=== PATIENT | female | born 1950 | race Hispanic/Latino ===

== ENCOUNTER 2019-05-12 21:22 | Emergency (ER) | payer OTHER ==
--- OUTSIDE RECORDS SUMMARY | 2019-05-12 21:24 | XMS REPORT | Clinical Summary ---
:1950 Author Organization [facility] Address [address] [place] [address] Care Team Providers Name Role Phone Nena Arriaga MD Primary Care Provider Allergies Not on File Medications Not on file Active Problems Not on file Encounters Date Type Specialty Care Team Description 04/19/2019 Hospital Encounter Radiology Nahun Shepard, Screening mammogram, encounter for after 05/11/2018 Social History Tobacco Use Types Packs/Day Years Used Date Never Assessed Sex Assigned at Date Recorded Not on file Job Start Date Occupation Industry Not on file Not on file Not on file Travel History Travel Start Travel End No recent travel history available. Last Filed Vital Signs Not on file Plan of Treatment Health Maintenance Due Date Last Done Comments COLONOSCOPY SCREENING 02/07/2002 SHINGLES VACCINES (#1) 02/07/2002 65+ PNEUMOCOCCAL VACCINE (1 of 2 - 02/07/2017 PCV13) INFLUENZA VACCINE 05/19/2019 BREAST CANCER SCREENING 04/19/2021 04/19/2019, 03/25/2018, 02/27/2017, Additional history exists Procedures Procedure Name Priority Date/Time Associated Diagnosis Comments MAMMO SCREENING W Routine 04/19/2019 4:09 PM Screening mammogram, Results for this CAD BILATERAL CDT encounter for procedure are in the results section. after 05/11/2018 Results Mammo Screening w Cad Bilateral (04/19/2019 4:09 PM CDT) Specimen Narrative Performed At PROCEDURE: MAMMO SCREENING W CAD BILATERAL RADIANT Computer aided detection was utilized for the interpretation of the digital bilateral screening mammography. INDICATION:Routine screening. COMPARISON: 03/25/2018 through 02/27/2017 DENSITY: There are scattered areas of fibroglandular density. FINDINGS: There is no suspicious mass, microcalcification, or architectural distortion identified. There is no significant interval change compared to prior exams. IMPRESSION:No mammographic evidence of malignancy. RECOMMENDATION: Comparison with physical exam and annual screening mammography. BI-RADS 1: NEGATIVE This facility is accredited by the [employer] for Mammography. A negative x-ray report should not delay biopsy if a dominant or clinically suspicious mass is present.Not all cancers are identified by x-ray. [id number] Performing Organization Address City/State/Zipcode Phone Number [facility] [address] [place] [address] after 05/11/2018 Insurance Payer Benefit Plan / Subscriber ID Effective Dates Phone Address Type Group MEDICARE MEDICARE PART A xxxxxxxxxxx 2017-Present [place], [place] Medicare AND B Advance Directives Patient has advance care planning documents on file. For more information, please contact:[address] [place] [address]
--- OUTSIDE RECORDS SUMMARY | 2019-05-12 21:24 | XMS REPORT ---
:1950 Author Organization [employer] Care Team Providers Name Role Phone Corina Nena Provider Role Unavailable Allergies, Adverse Reactions, Alerts Substance Reaction Event Type PCN hive, anaphylaxis Drug Allergy Aspirin generalized weakness Drug Allergy Problems Problem Type Condition Code Onset Dates Condition Status Assessment Tongue swelling R22.0 Active Assessment Allergic rhinitis, unspecified J30.9 Active seasonality, unspecified trigger Problem Allergic rhinitis, unspecified J30.9 Active seasonality, unspecified trigger Problem Red tongue K14.9 Active Problem Tongue swelling R22.0 Active Assessment Red tongue K14.9 Active Problem Family history of diabetes mellitus Z83.3 Active Problem Seasonal allergies J30.2 Active Medications Medication Code Code Instructions Start End Status Dosage System Date Date Singulair [facility] 63340432511 10 MG Orally Active 1 tablet Once a day Shaista [facility] 02754570079 180 MG Orally Active 1 tablet as Allergy Once a day needed Medrol [facility] 25912736009 4 MG Orally as March 03, Active as directed directed 2018 Fish Oil ND 37977178106 1000 MG Orally Active 1 capsule Once a day Alcortin A [facility] 12011988338 1-2-1 % Active 1 application Externally to affected Twice a day area as needed Zofran ND 15774089053 4 MG Orally Sep 08, Active 1 tablet Every 6-8 hours 2017 as needed for nausea/vomiting ; february dose 15-20 minutes before abx. HydrOXYzine [facility] 28716882909 25 MG Orally April 22, Active 1 tablet as HCl every 8 hrs 2018 needed Results No Known Results Summary Purpose eClinicalWorks Submission
--- OUTSIDE RECORDS SUMMARY | 2019-05-12 21:24 | XMS REPORT ---
:1950 Author Organization [employer] Care Team Providers Name Role Phone Nena Arriaga Provider Role Unavailable Allergies No Known Allergies Problems Problem Type Condition Code Onset Dates Condition Status Problem Allergic rhinitis, unspecified J30.9 Active seasonality, unspecified trigger Problem Red tongue K14.9 Active Problem Tongue swelling R22.0 Active Problem Family history of diabetes mellitus Z83.3 Active Problem Seasonal allergies J30.2 Active Medications No Known Medications Results No Known Results Summary Purpose eClinicalWorks Submission
--- OUTSIDE RECORDS SUMMARY | 2019-05-12 21:24 | XMS REPORT ---
:1950 Author Organization [facility] Address [address] [place] [address] Dr. [address]t [address] [place] [address] Care Team Providers Name Role Phone Nahun Shepard Unavailable Unavailable Chandan Kuo Unavailable Unavailable Problems This patient has no known problems. Allergies, Adverse Reactions, Alerts This patient has no known allergies or adverse reactions. Medications This patient has no known medications. Encounters Start End Encounter Admission Attending Care Care Encounter Date/Time Date/Time Type Type Clinicians Facility Department ID 2019-04-19 2019-04-19 Outpatient BASHIR hSepard [id number] 10:59:00 10:59:00 Nahun 2018-03-25 2018-03-25 Outpatient BASHIR Kuo [id number] 10:48:00 10:48:00 Chandan
--- OUTSIDE RECORDS SUMMARY | 2019-05-12 21:24 | XMS REPORT ---
:1950 Author Organization [employer] Care Team Providers Name Role Phone Miguel Arriagaen Provider Role Unavailable Allergies No Known Allergies Problems Problem Type Condition Code Onset Dates Condition Status Assessment Strep pharyngitis J02.0 Active Problem Tongue swelling R22.0 Active Problem Allergic rhinitis, unspecified J30.9 Active seasonality, unspecified trigger Problem Strep pharyngitis J02.0 Active Problem Seasonal allergies J30.2 Active Problem Red tongue K14.9 Active Problem Family history of diabetes mellitus Z83.3 Active Medications Medication Code Code Instructions Start End Status Dosage System Date Date Shaista Allergy [facility] 55416885896 180 MG Orally Active 1 tablet as Once a day needed Fish Oil ND 05240367734 1000 MG Orally Active 1 capsule Once a day Clarithromycin ND 63328672586 500 MG Orally April Active 1 tablet every 12 hrs 2018 Zofran ND 17928209121 4 MG Orally Sep 08, Active 1 tablet Every 6-8 hours 2018 as needed for nausea/vomiting ; february dose 15-20 minutes before abx. Medrol ND 00886860556 4 MG Orally as March 03, Active as directed directed 2018 Alcortin A [facility] 41571117431 1-2-1 % Active 1 application Externally to affected Twice a day area as needed HydrOXYzine HCl ND 42699857820 25 MG Orally April Active 1 tablet as every 8 hrs , needed 2017 Azithromycin ND 94465120380 250 MG Orally April Active 2 tablets on as directed , the first 2018 2018 day, then 1 tablet daily for 4 days Singulair ND 13560084941 10 MG Orally Active 1 tablet Once a day Results No Known Results Summary Purpose eClinicalWorks Submission
--- OUTSIDE RECORDS SUMMARY | 2019-05-12 21:24 | XMS REPORT ---
:1950 Author Organization [employer] Care Team Providers Name Role Phone Rogre Barry Provider Role Unavailable Allergies No Known Allergies Problems Problem Type Condition Code Onset Dates Condition Status Problem Seasonal allergies J30.2 Active Problem Family history of diabetes mellitus Z83.3 Active Medications No Known Medications Results No Known Results Summary Purpose eClinicalWorks Submission
--- OUTSIDE RECORDS SUMMARY | 2019-05-12 21:25 | XMS REPORT ---
:1950 Author Organization [employer] Care Team Providers Name Role Phone Corina Nena Provider Role Unavailable Allergies, Adverse Reactions, Alerts Substance Reaction Event Type PCN hive, anaphylaxis Drug Allergy Aspirin generalized weakness Drug Allergy Problems Problem Type Condition Code Onset Dates Condition Status Assessment Strep throat J02.0 Active Assessment URI, acute J06.9 Active Assessment Otalgia, bilateral H92.03 Active Assessment Hematuria, unspecified type R31.9 Active Assessment Abdominal pain, unspecified R10.9 Active abdominal location Assessment Urinary frequency R35.0 Active Assessment Dysuria R30.0 Active Problem Tongue swelling R22.0 Active Problem Allergic rhinitis, unspecified J30.9 Active seasonality, unspecified trigger Problem Strep pharyngitis J02.0 Active Problem Seasonal allergies J30.2 Active Problem Red tongue K14.9 Active Problem Family history of diabetes mellitus Z83.3 Active Medications Medication Code Code Instructions Start End Status Dosage System Date Date Zofran [facility] 15874244395 4 MG Orally Sep 08, Active 1 tablet Every 6-8 hours 2018 as needed for nausea/vomiting ; february dose 15-20 minutes before abx. Shaista Allergy [facility] 89582055248 180 MG Orally Active 1 tablet as Once a day needed Singulair ND 43134537541 10 MG Orally Active 1 tablet Once a day Medrol ND 58839774880 4 MG Orally as March 03, Active as directed directed 2018 HydrOXYzine HCl ND 45914701329 25 MG Orally April 22, Active 1 tablet as every 8 hrs 2018 needed Alcortin A [facility] 71816528455 1-2-1 % Active 1 application Externally to affected Twice a day area as needed Fish Oil ND 99646991100 1000 MG Orally Active 1 capsule Once a day Azithromycin ND 73573851988 250 MG Orally April 18April Active 2 tablets on as directed 2019 03, the first 2018 day, then 1 tablet daily for 4 days Results Name Result Date Reference Range Unit Abnormality Flag STREP A RAPID ----Result Positive 20190418 Urine Dip Stick ----pH 5.5 20190418 ----Ketone Negative 20190418 ----Appearance Yellow & Clear 20190418 ----SP. Gr 1.025 20190418 ----Leukocytes Negative 20190418 ----Glucose Negative 20190418 ----Protein Negative 20190418 ----Nitrite Negative 20190418 ----Blood 1+ 20190418 Summary Purpose eClinicalWorks Submission
--- OUTSIDE RECORDS SUMMARY | 2019-05-12 21:25 | XMS REPORT ---
:1950 Author Organization [employer] Care Team Providers Name Role Phone Roger Barry Provider Role Unavailable Allergies, Adverse Reactions, Alerts Substance Reaction Event Type PCN hive, anaphylaxis Drug Allergy Aspirin generalized weakness Drug Allergy Problems Problem Type Condition Code Onset Dates Condition Status Assessment Viral upper respiratory tract J06.9 Active infection Problem Tongue swelling R22.0 Active Problem Allergic rhinitis, unspecified J30.9 Active seasonality, unspecified trigger Problem Strep pharyngitis J02.0 Active Problem Seasonal allergies J30.2 Active Problem Red tongue K14.9 Active Problem Family history of diabetes mellitus Z83.3 Active Medications Medication Code Code Instructions Start End Status Dosage System Date Date Carbinoxamine [facility] 41973457666 4 MG Orally April Active 1 tablet as Maleate Three times a 18, 28, needed day 2018 2018 HydrOXYzine HCl ND 31185698592 25 MG Orally April Active 1 tablet as every 8 hrs , needed 2017 Fish Oil ND 14758573697 1000 MG Orally Active 1 capsule Once a day Medrol ND 04283690556 4 MG Orally as March 03, Active as directed directed 2019 Zofran ND 83276786673 4 MG Orally Sep 08, Active 1 tablet Every 6-8 hours 2018 as needed for nausea/vomiting ; february dose 15-20 minutes before abx. Alcortin A [facility] 67833559246 1-2-1 % Active 1 application Externally to affected Twice a day area as needed Fluticasone ND 53131041137 50 MCG/ACT April Active 1 spray in Propionate Nasally Once a 18, each nostril day 2018 Shaista Allergy [facility] 32409301007 180 MG Orally Active 1 tablet as Once a day needed Singulair ND 60397275598 10 MG Orally Active 1 tablet Once a day Results No Known Results Summary Purpose eClinicalWorks Submission
[2019-05-12] MEDS ORDERED: FAMOTIDINE 20 MG/2 ML VIAL IV ONE (21:54)
[2019-05-12] MEDS ORDERED: dexAMETHasone 10 MG/ML VIAL ONE (21:54)
[2019-05-12] MEDS ORDERED: DIPHENHYDRAMINE 50 MG/ML VIAL ONE (21:54)
--- NOTE | 2019-05-13 00:12 | ER ---
Nurse's Notes [facility] Name: Glenna Perdue Age: 69 yrs Sex: Female : 1950 Arrival Date: 05/12/2019 Time: 21:25 Bed 14 Private MD: Nena Arriaga Diagnosis: Acute pharyngitis Presentation: 05/12 21:33 Presenting complaint: Patient states: throat pain intermittent since March. pt states ak1 "it feels raw" pt states the pain is "so bad I can't even swallow my pills". Transition of care: patient was not received from another setting of care. Onset of symptoms is unknown. Risk Assessment: Do you want to hurt yourself or someone else? Patient reports no desire to harm self or others. Initial Sepsis Screen: Does the patient meet any 2 criteria? No. Patient's initial sepsis screen is negative. Does the patient have a suspected source of infection? No. Patient's initial sepsis screen is negative. Note pt seen at PCP office twice for s/s. Care prior to arrival: None. 21:33 Method Of Arrival: Ambulatory ak1 21:33 Acuity: KONRAD 3 ak1 Triage Assessment: 21:35 General: Appears in no apparent distress. Behavior is calm, anxious, no drooling, no ak1 resp distress. . Historical: - Allergies: 21:35 PENICILLINS; ak1 21:35 Codeine; ak1 21:35 Sulfa (Sulfonamide Antibiotics); ak1 21:35 Aspirin; ak1 - Home Meds: 21:35 None [Active]; ak1 - PMHx: 21:35 None; ak1 - PSHx: 21:35 Hysterectomy; Bladder suspension; ak1 - Immunization history:: Adult Immunizations unknown. - Social history:: Smoking status: Patient/guardian denies using tobacco. - Ebola Screening: : No symptoms or risks identified at this time. Screenin:55 Abuse screen: Denies threats or abuse. Denies injuries from another. Nutritional rr5 screening: No deficits noted. Tuberculosis screening: No symptoms or risk factors identified. Fall Risk IV access (20 points). Total Fowler Fall Scale indicates No Risk (0-24 pts). Assessment: 21:45 General: Appears in no apparent distress. uncomfortable, Behavior is calm, cooperative, rr5 appropriate for age. Pain: Complains of pain in throat Pain radiates to ear and sinus Pain Quality of pain is described as aching, Pain began gradually, Is intermittent. 21:45 Neuro: Level of Consciousness is awake, alert, obeys commands, Oriented to person, rr5 place, time, situation, Appropriate for age. Cardiovascular: Capillary refill < 3 seconds Patient's skin is warm and dry. Respiratory: Airway is patent Respiratory effort is even, unlabored, Respiratory pattern is regular, symmetrical. GI: No signs and/or symptoms were reported involving the gastrointestinal system. : No signs and/or symptoms were reported regarding the genitourinary system. EENT: Throat with gag reflex present, mild swelling. Reports difficulty swallowing. Derm: Skin is intact, Skin temperature is warm. Musculoskeletal: No signs and/or symptoms reported regarding the musculoskeletal system. 21:45 Pain: Pain currently is 7 out of 10 on a pain scale. rr5 22:15 Reassessment: Patient appears in no apparent distress at this time. oxygen saturation rr5 99% patient feels anxious after the medication administration. hooked on oxygen at 1 liter via nasal cannula. 23:15 Reassessment: Patient appears in no apparent distress at this time. Patient is alert, rr5 oriented x 3, equal unlabored respirations, skin warm/dry/pink. oxygen discontinue Patient states feeling better. Patient states symptoms have improved. 05/13 00:20 Reassessment: Patient appears in no apparent distress at this time. Patient is alert, rr5 oriented x 3, equal unlabored respirations, skin warm/dry/pink. discharge instruction given and explained without complaints made. Patient states feeling better. Patient states symptoms have improved. Vital Signs: 05/12 21:33 BP 185 / 82; Pulse 76; Resp 20; Temp 99.3; Pulse Ox 99% on R/A; Weight 63.96 kg (R); ak1 Height 5 ft. 2 in. (157.48 cm) (R); Pain 7/10; 22:30 BP 150 / 88; Pulse 79; Resp 17; Pulse Ox 99% on 1 lpm NC; rr5 23:30 BP 146 / 79; Pulse 80; Resp 16; Pulse Ox 99% on R/A; rr5 05/13 00:20 BP 141 / 70; Pulse 75; Resp 17; Temp 98.5; Pulse Ox 99% ; rr5 05/12 21:33 Body Mass Index 25.79 (63.96 kg, 157.48 cm) ak1 ED Course: 05/12 21:25 Patient arrived in ED. mr 21:25 Nena Arriaga MD is Private Physician. mr 21:26 [facility] pm1 21:26 Ata Orantes MD is Attending Physician. pm1 21:29 Howie Rodriguez, NICKOLAS is Primary Nurse. rr5 21:33 Arm band placed on Patient placed in an exam room, on a stretcher, Patient notified of ak1 wait time. 21:34 Triage completed. ak1 21:45 Patient has correct armband on for positive identification. Placed in gown. Call light rr5 in reach. Side rails up X2. 21:47 Inserted saline lock: 22 gauge in right forearm, using aseptic technique. rr5 22:15 Oxygen administration via nasal cannula \\T\\ 1L/min Response to oxygen therapy: rr5 maintaining 99-100%. 05/13 00:20 No provider procedures requiring assistance completed. rr5 Administered Medications: 05/12 21:48 Drug: Decadron - Dexamethasone 10 mg Route: IVP; Site: right forearm; rr5 22:50 Follow up: Response: No adverse reaction rr5 21:50 Drug: Pepcid 20 mg Route: IVP; Site: right forearm; rr5 22:50 Follow up: Response: No adverse reaction rr5 21:52 Drug: Benadryl 25 mg Route: IVP; Site: right forearm; rr5 22:50 Follow up: Response: No adverse reaction rr5 Outcome: 05/13 00:09 Discharge ordered by . pm1 00:20 Discharged to home ambulatory. rr5 00:20 Condition: stable 00:20 Discharge instructions given to patient, Instructed on discharge instructions, follow up and referral plans. Demonstrated understanding of instructions, follow-up care. 00:25 Patient left the ED. rr5 Signatures: Judy Barksdale mr LopezAlondra, RN RN ak1 Nii Hendrix, SHOESHINER SHOESHINER pm1 Howie Rodriguez, NICKOLAS RN rr5
--- NOTE | 2019-05-13 00:15 | EDPHYS ---
Physician Documentation [facility] Name: Glenna Perdue Age: 69 yrs Sex: Female : 1950 Arrival Date: 05/12/2019 Time: 21:25 Bed 14 Private MD: Nena Arriaga ED Physician Ata Orantes HPI: 05/12 21:52 This 69 yrs old Female presents to ER via Ambulatory with complaints of pm1 Pharyngitis. 21:52 The patient presents with sore throat. The patient describes throat pain as raw, pm1 scratchy. Onset: The symptoms/episode began/occurred On and off since March of this year. Severity of symptoms: in the emergency department the symptoms are unchanged. Modifying factors: The symptoms are alleviated by nothing, the symptoms are aggravated by swallowing, sick contacts. Associated signs and symptoms: Pertinent negatives chest pain, cough, earache, fever, flu-like symptoms. The patient has not experienced similar symptoms in the past. The patient has been recently seen by a physician: Dr. Barry and prescribed antihistamine for allergies. Patient did not agree with diagnosis and did not fill prescription. Historical: - Allergies: 21:35 PENICILLINS; ak1 21:35 Codeine; ak1 21:35 Sulfa (Sulfonamide Antibiotics); ak1 21:35 Aspirin; ak1 - Home Meds: 21:35 None [Active]; ak1 - PMHx: 21:35 None; ak1 - PSHx: 21:35 Hysterectomy; Bladder suspension; ak1 - Immunization history:: Adult Immunizations unknown. - Social history:: Smoking status: Patient/guardian denies using tobacco. - Ebola Screening: : No symptoms or risks identified at this time. ROS: 21:52 Constitutional: Negative for fever, chills, and weight loss, Eyes: Negative for injury, pm1 pain, redness, and discharge. 21:52 Neck: Negative for injury, pain, and swelling, Cardiovascular: Negative for chest pain, palpitations, and edema, Respiratory: Negative for shortness of breath, cough, wheezing, and pleuritic chest pain, Abdomen/GI: Negative for abdominal pain, nausea, vomiting, diarrhea, and constipation, Back: Negative for injury and pain, : Negative for injury, bleeding, discharge, and swelling, MS/Extremity: Negative for injury and deformity, Skin: Negative for injury, rash, and discoloration, Neuro: Negative for headache, weakness, numbness, tingling, and seizure. 21:52 ENT: Positive for sore throat, Negative for drainage from ear(s), ear pain. Exam: 21:52 Constitutional: This is a well developed, well nourished patient who is awake, alert, pm1 and in no acute distress. Head/Face: Normocephalic, atraumatic. Eyes: Pupils equal round and reactive to light, extra-ocular motions intact. Lids and lashes normal. Conjunctiva and sclera are non-icteric and not injected. Cornea within normal limits. Periorbital areas with no swelling, redness, or edema. 21:52 Neck: Trachea midline, no thyromegaly or masses palpated, and no cervical lymphadenopathy. Supple, full range of motion without nuchal rigidity, or vertebral point tenderness. No Meningismus. Chest/axilla: Normal chest wall appearance and motion. Nontender with no deformity. No lesions are appreciated. Cardiovascular: Regular rate and rhythm with a normal S1 and S2. No gallops, murmurs, or rubs. Normal PMI, no JVD. No pulse deficits. Respiratory: Lungs have equal breath sounds bilaterally, clear to auscultation and percussion. No rales, rhonchi or wheezes noted. No increased work of breathing, no retractions or nasal flaring. Abdomen/GI: Soft, non-tender, with normal bowel sounds. No distension or tympany. No guarding or rebound. No evidence of tenderness throughout. Back: No spinal tenderness. No costovertebral tenderness. Full range of motion. Skin: Warm, dry with normal turgor. Normal color with no rashes, no lesions, and no evidence of cellulitis. MS/ Extremity: Pulses equal, no cyanosis. Neurovascular intact. Full, normal range of motion. 21:52 ENT: External ear(s): are unremarkable, Ear canal(s): are normal, TM's: are normal, Nose: is normal, Mouth: is normal, Posterior pharynx: Airway: normal, no evidence of obstruction, Tonsils: are normal in appearance, no enlargement, no erythema, no exudate, no ulcerations, erythema, that is mild, exudate, is not appreciated, peritonsillar mass, is not appreciated, pooling of secretions, is not appreciated. 21:52 Neuro: Orientation: is normal, Motor: is normal, moves all fours. Vital Signs: 21:33 BP 185 / 82; Pulse 76; Resp 20; Temp 99.3; Pulse Ox 99% on R/A; Weight 63.96 kg (R); ak1 Height 5 ft. 2 in. (157.48 cm) (R); Pain 7/10; 22:30 BP 150 / 88; Pulse 79; Resp 17; Pulse Ox 99% on 1 lpm NC; rr5 23:30 BP 146 / 79; Pulse 80; Resp 16; Pulse Ox 99% on R/A; rr5 05/13 00:20 BP 141 / 70; Pulse 75; Resp 17; Temp 98.5; Pulse Ox 99% ; rr5 05/12 21:33 Body Mass Index 25.79 (63.96 kg, 157.48 cm) ak1 MDM: 05/12 21:31 Patient medically screened. pm1 05/13 00:08 Data reviewed: vital signs. Data interpreted: Pulse oximetry: on room air is 99 %. pm1 Interpretation: normal. Counseling: I had a detailed discussion with the patient and/or guardian regarding: the historical points, exam findings, and any diagnostic results supporting the discharge/admit diagnosis, lab results, the need for outpatient follow up, to return to the emergency department if symptoms worsen or persist or if there are any questions or concerns that arise at home. 05/12 21:32 Order name: Strep pm1 05/12 21:33 Order name: Group A Streptococcus Rapid Sc; Complete Time: 22:31 [facility] 05/12 21:52 Order name: Throat Culture [facility] 05/12 21:32 Order name: IV Saline Lock; Complete Time: 21:53 pm1 Administered Medications: 05/12 21:48 Drug: Decadron - Dexamethasone 10 mg Route: IVP; Site: right forearm; rr5 22:50 Follow up: Response: No adverse reaction rr5 21:50 Drug: Pepcid 20 mg Route: IVP; Site: right forearm; rr5 22:50 Follow up: Response: No adverse reaction rr5 21:52 Drug: Benadryl 25 mg Route: IVP; Site: right forearm; rr5 22:50 Follow up: Response: No adverse reaction rr5 Disposition: 05/13 07:08 Co-signature as Attending Physician, Ata Orantes MD I agree with the assessment and geraldo plan of care. Disposition: 05/13/19 00:09 Discharged to Home. Impression: Acute pharyngitis. - Condition is Stable. - Discharge Instructions: Pharyngitis. - Medication Reconciliation Form, Thank You Letter, Antibiotic Education, Prescription Opioid Use form. - Follow up: Emergency Department; When: As needed; Reason: Worsening of condition. Follow up: Private Physician; When: 2 - 3 days; Reason: Recheck today's complaints, Continuance of care, Re-evaluation by your physician. - Problem is new. - Symptoms have improved. Signatures: Dispatcher [employer] EDAta Victor MD MD cha Krenek, Amber, RN RN ak1 Nii Hendrix, INTRANET SUPPORT INTRANET SUPPORT pm1 Howie Rodriguez RN RN rr5 Corrections: (The following items were deleted from the chart) 00:25 00:09 05/13/2019 00:09 Discharged to Home. Impression: Acute pharyngitis. Condition is rr5 Stable. Forms are Medication Reconciliation Form, Thank You Letter, Antibiotic Education, Prescription Opioid Use. Follow up: Emergency Department; When: As needed; Reason: Worsening of condition. Follow up: Private Physician; When: 2 - 3 days; Reason: Recheck today's complaints, Continuance of care, Re-evaluation by your physician. Problem is new. Symptoms have improved. pm1
== END 2019-05-13 00:25 | disposition home or self-care (01) ==
LOC: ER 21:22
DX: J02.9 Acute pharyngitis, unspecified (principal); Z88.6 Allergy status to analgesic agent; Z88.5 Allergy status to narcotic agent; Z88.0 Allergy status to penicillin; Z88.2 Allergy status to sulfonamides
CPT/HCPCS: 87070; 87081; 96375; 96374; 99284; J1100

== ENCOUNTER 2021-05-10 16:31 | Emergency (ER) | payer OTHER ==
--- OUTSIDE RECORDS SUMMARY | 2021-05-10 16:34 | XMS REPORT | Continuity of Care Document ---
:1950 Author Organization [facility] t Address [address] [place] [address] Care Team Providers Name Role Phone Corina LINN Primary Care Physician Only, Test Attending Clinician Unavailable Doctor Unassigned, Name Attending Clinician Unavailable Lara Cage Attending Clinician Lab, Fam Pob I Attending Clinician Unavailable Adeel Shepard MD Attending Clinician Rudy Shepard Attending Clinician Unavailable Rudy Kuo Attending Clinician Unavailable Payers Payer Name Policy Type Policy Effective Date Expiration Date Sour ce Number MEDICAREMEDICARE PART [id number] 2017 Davonte Nugent AND 00:00:00 Mandaen [id number] [place] [place] This patient has no known problems. Allergies, Adverse Reactions, Alerts Allergy Allergy Status Severity Reaction(s) Onset Inactive Treating Comm ents Source Name Type Date Date Clinician PCN Adverse Active hive, [facility] Reaction anaphylaxis [facility] Aspirin Adverse Active generalized [facility] Reaction weakness [facility] Social History Social Habit Start Date Stop Date Quantity Comments Source Sex Assigned At [birth year] [place] [facility] 00:00:00 00:00:00 Medications Ordered Filled Start Stop Current Ordering Indication Dosage Frequency Signature Comments Components Source Medication Medication Date Date Medication? Clinician (SIG) Name Name Fluticasone Fluticasone Yes Nena [address] [facility] Propionate Propionate 7-18 [place] each [facility] Medrol Medrol Yes Nena as [facility] 5-16 [facility] directed [facility] Zofran Zofran 2017-10 Yes Nena [address] [facility] 1-21 [facility] HydrOXYzine HydrOXYzine Yes Nena [address] [facility] HCl HCl 7-05 [place] as needed [facility] Fish Oil Fish Oil Yes Nena [address] [facility] Singulair Singulair Yes Nena [address] [facility] Millender [facility] Shaista Shaista Yes Nena [address] [facility] Allergy Allergy Millender as needed [facility] Alcortin A Alcortin A Yes Nena [address] [facility] applicatio [facility] - [facility] to [facility] affected l area as Outpati needed ent Clinics Procedures Procedure Date / Time Performed Performing Clinician [facility] e BONE DENSITY 2020-06-01 13:26:46 Nahun Shepard MAMMO BREAST SCREEN 2020-06-01 13:26:25 Nahun Shepard TOMOSYNTHESIS BILATERAL Plan of Care Planned Activity Planned Date Details Comments Source Future Scheduled 2022-06-[address] [facility] S[facility]ENING [code = BREAST CANCER SCREENING] Future Scheduled 2021-05-19 INFLUENZA VACCINE Kike jasmine Mandaen Test 00:00:00 [code = INFLUENZA VACCINE] Future Scheduled 2017-02-07 65+ PNEUMOCOCCAL Lynn Mandaen Test 00:00:00 VACCINE (1 of 1 - PPSV23) [code = 65+ PNEUMOCOCCAL VACCINE (1 of 1 - PPSV23)] Future Scheduled 2002-02-07 COLONOSCOPY SCREENING lester Mandaen Test 00:00:00 [code = COLONOSCOPY SCREENING] Future Scheduled 2002-02-07 SHINGLES VACCINES (#1) Emerald wilson Mandaen Test 00:00:00 [code = SHINGLES VACCINES (#1)] Future Scheduled 1970-02-07 Hepatitis C screening Davonte batista Mandaen Test 00:00:00 (procedure) [code = 910039199] Future Scheduled 1964 COVID-19 VACCINE (1) Terrence khan Mandaen Test 00:00:00 [code = COVID-19 VACCINE (1)] Encounters Start End Encounter Admission Attending Care Care Encounter Source Date/Time Date/Time Type Type Clinicians Facility Department ID 2021-01-21 2021-01-[address] [facility] [id number] [facility] 2021-01-21 2021-01-[address] [facility] [id number] [facility]00 [facility] 2021-01-03 2021-01-03 Laboratory Only, [facility] [id number] 10:16:33 10:31:33 Only Test [place] 350.1.13.10 [place] 4.2.7.2.686 [place] [id number] 2021-01-03 2021-01-03 Orders Doctor DASHAWN [id number] 00:00:00 00:00:00 Only Unassigned, PK [address] [facility] 4.2.7.2.686 [id number] 2020-11-15 2020-11-15 Emergency Diana, [facility] [id number] 16:49:00 19:25:00 Lara [place] 350.1.13.10 [place] 4.2.7.2.686 [place] [id number] 2020-10-25 2020-10-25 Laboratory Lab, [facility] [id number] 13:08:21 13:28:21 Only Fam Pob I Health [id number] [place] 4.2.7.2.686 Professio [id number] nal [address] One 2020-10-25 2020-10-25 Letter Doctor DASHAWN [id number] 00:00:00 00:00:00 (Out) Unassigned, PK 350.1.13.[address] [facility] 4.2.7.2.686 [id number] 2020-06-01 2020-06-01 Outpatient [facility] [id number] [place] 00:00:00 00:00:00 GENE [address] 2020-06-01 2020-06-01 Outpatient [facility] [id number] [place] 00:00:00 00:00:00 GENE [address] 2020-05-16 2020-05-16 Out[address] B[address]IR Shepard [id number] [facility] 11:11:00 11:11:[address] [facility] 2019-10-24 2019-10-24 [address] Shepard [id number] [facility] 10:28:00 10:28:[address] O[facility]YN 2019-09-30 2019-09-30 [facility] [id number] [facility] 11:00:00 11:00:00 [facility] Clin[facility] 2019-09-19 2019-09-19 [facility] [id number] 09:00:00 09:00:00 [facility] 2019-05-05 2019-05-05 [facility] [id number] 09:30:00 09:30:00 [facility] 2019-04-19 2019-04-19 Out[address] B[address]IR Shepard [id number] [facility] 10:59:00 10:59:[address] O[facility]YN 2019-04-18 2019-04-18 [facility] [id number] 11:29:00 11:29:00 [facility] 2019-04-18 2019-04-18 [facility] [id number] 10:20:00 10:20:00 [facility] 2019-03-04 2019-03-04 [facility] [id number] 00:12:00 00:12:00 [facility] Clinics 2019-03-03 2019-03-03 [facility] [id number] 15:00:00 15:00:00 [facility] Outpati ent Clinics 2018-09-24 2018-09-24 [facility] [id number] 15:28:00 15:28:00 [facility] 2018-04-22 2018-04-22 [facility] [id number] 15:45:00 15:45:00 [facility] Clinics 2018-04-22 2018-04-22 [facility] [id number] 10:42:00 10:42:00 [facility] 2018-03-25 2018-03-25 [address] KuoSia [id number] [facility] 10:48:00 10:48:00 Chandan Crow Results Test Description Test Time Test Comments Results Result [facility] e Comments Mammo Breast 2020-05-19 There is no [place] Screen 7 mammographic Mandaen Tomosynthesis 08:08:04 evidence of Bilateral malignancy. Continued monitoring of the clinical examination and annual mammography in 1 year is recommended. BI-RADS Category 1:Negative Workstation Name: [id number] A NEGATIVE X-RAY REPORT SHOULD NOT DELAY BIOPSY IF A DOMINANT OR CLINICALLY SUSPICIOUS MASS IS PRESENT. NOT ALL CANCERS ARE IDENTIFIED BY X-RAY. Interface, Radiology Results 06/04/2020 8:08 AM CDT PROCEDURE:B ilateral Tomosynthesis Screening HISTORY:Patient is 70 years old and is seen for screening. The patient has no family history of breast cancer. The patient has no current palpable breast complaints. FILMS COMPARED:The present examination has been compared to prior imaging studies dated 02/27/2017, 03/25/2018 and 04/19/2019. MAMMOGRAM FINDINGS:There are scattered areas of fibroglandular densities. No suspicious masses, calcifications or other abnormalities are seen. There are no significant changes from the prior study. IMPRESSION:There is no mammographic evidence of malignancy. Continued monitoring of the clinical examination and annual mammography in 1 year is recommended. BI-RADS Category 1:Negative Workstation Name: [id number] A NEGATIVE X-RAY REPORT SHOULD NOT DELAY BIOPSY IF A DOMINANT OR CLINICALLY SUSPICIOUS MASS IS PRESENT. NOT ALL CANCERS ARE IDENTIFIED BY X-RAY. Bone Density 2020-05-19 [facility] [place] [address] 16:48:44 - 06/01/2020 4:51 PM CDT EXAMINATION : BONE DENSITYCLINICAL HISTORY: Z12.31 Encounter for screening mammogram for malignant neoplasm of breast, Z78.0 Asymptomatic menopausal state, Z78.0COMPARISON: March 25, 2018.The results of this study expressed as bone mineral density (BMD) were as follows:AP spine (L1-L4)*BMD: 0.864 g/cm2*T-Score: -2.7*Z-score: -1.0*Percent change: -7.0 Dual Femur (Total Mean):*BMD: 0.868 g/cm2*T-Score: -1.1*Z-score: 0.3*Percent change: -1.7Left femoral neck:*BMD: 0.814 g/cm2*T-Score: -1.6*Z-score: 0.0Right femoral neck:*BMD: 0.882 g/cm2*T-Score: -1.1*Z-score: 0.5Dual femur FRAX:*Risk factors: None.*10-year probability of fracture:1. Major osteoporotic: 5.6%2. Hip: 0.8%3. Based on dual femur left neck BMDIMPRESSION: Bone mineral density values as above.A copy of this scans including a report detailing these results will follow.Notes: *The world health organization (WHO) has classified the patient's T-score as follows:Normal = T-score at or above -1.0 SDOsteopenia = T-score between -1.0 and -2.5 SDOsteoporosis = T-score at or below minus 2.5 SD For premenopausal women, men under the age 50 years, and children the WHO classification does not apply. In these individuals please assess bone mineral density with Z scores for each skeletal site examined. Z scores above -2.0: Within expected range for age. Z scores lower than -2.0: Low bone density for age.[facility]-[id number]
[2021-05-10] MEDS ORDERED: HYDROCODONE/APAP 5/325 MG TAB ONE (18:16)
--- NOTE | 2021-05-10 19:28 | RAD REPORT ---
EXAM DESCRIPTION: RAD - Foot Left 3 View - 05/10/2021 6:14 pm CLINICAL HISTORY: PAIN COMPARISON: No comparisons FINDINGS: No left foot fracture identified. No malalignment. Calcaneal spurring is present. IMPRESSION: No left foot fracture identified.
--- NOTE | 2021-05-10 19:28 | RAD REPORT ---
EXAM DESCRIPTION: RAD - Tib Fib Left - 05/10/2021 6:14 pm CLINICAL HISTORY: PAIN COMPARISON: No comparisons FINDINGS: No fracture of the tibia or fibula is identified. No radiopaque foreign body. IMPRESSION: No tibia or fibular fracture
--- NOTE | 2021-05-10 20:07 | ER ---
Nurse's Notes [facility] Name: Glenna Perdue Age: 71 yrs Sex: Female : 1950 Arrival Date: 05/10/2021 Time: 16:36 Bed 14 Private MD: Diagnosis: Ankle Sprain, Left Presentation: 05/10 17:33 Chief complaint: Patient states: Left foot pain. Pt stated, " One week ago my mom's kg rolling walker fell on my foot while we were in motion and the pain just has gotten worse and nobody can work me in to see me.". Coronavirus screen: Client denies travel out of the [place] in the last 14 days. At this time, unable to obtain information related to travel outside the [place] At this time, the client does not indicate any symptoms associated with coronavirus-19. Ebola Screen: Patient negative for fever greater than or equal to 101.5 degrees Fahrenheit, and additional compatible Ebola Virus Disease symptoms Patient denies exposure to infectious person. Patient denies travel to an Ebola-affected area in the 21 days before illness onset. Initial Sepsis Screen: Does the patient meet any 2 criteria? No. Patient's initial sepsis screen is negative. Does the patient have a suspected source of infection? No. Patient's initial sepsis screen is negative. Risk Assessment: Do you want to hurt yourself or someone else? Patient reports no desire to harm self or others. Onset of symptoms was May 03, 2021. 17:33 Method Of Arrival: Ambulatory kg 17:33 Acuity: KONRAD 4 kg Triage Assessment: 17:36 General: Appears in no apparent distress. Behavior is calm, cooperative. Pain: kg Complains of pain in left foot Pain currently is 10 out of 10 on a pain scale. at worst was 10 out of 10 on a pain scale. level that patient reports is acceptable is 8 out of 10 on a pain scale. Historical: - Allergies: 17:36 Aspirin; kg 17:36 Codeine; kg 17:36 PENICILLINS; kg 17:36 Sulfa (Sulfonamide Antibiotics); kg - Home Meds: 17:36 None [Active]; kg - PMHx: 17:36 None; kg - PSHx: 17:36 None; kg 17:36 hysterectomy; bladder suspenssion; kg - Immunization history:: Adult Immunizations not up to date, Client reports receiving the 1st dose of the Covid vaccine, October 2020. - Social history:: Smoking status: Patient denies any tobacco usage or history of. - Family history:: not pertinent. Screenin:00 Abuse screen: Denies threats or abuse. Denies injuries from another. Nutritional zb screening: No deficits noted. Tuberculosis screening: No symptoms or risk factors identified. Fall Risk None identified. Assessment: 17:57 General: Appears in no apparent distress. uncomfortable, Behavior is calm, cooperative. zb Pain: Complains of pain in left foot Pain does not radiate. Pain currently is 10 out of 10 on a pain scale. Quality of pain is described as shooting, tender, tingling, throbbing, Alleviated by. Neuro: Level of Consciousness is awake, alert, obeys commands, Oriented to person, place, time. Cardiovascular: Patient's skin is warm and dry. Respiratory: Airway is patent Respiratory effort is even, unlabored, Respiratory pattern is regular, symmetrical. GI:. Derm: Bruising that is dark purple, on left foot. Derm: Musculoskeletal: Range of motion: limited in left ankle. Musculoskeletal: Swelling present in left foot. 18:30 Reassessment: Patient appears in no apparent distress at this time. Patient and/or zb family updated on plan of care and expected duration. Pain level reassessed. Patient is alert, oriented x 3, equal unlabored respirations, skin warm/dry/pink. 19:35 Reassessment: Patient appears in no apparent distress at this time. Patient and/or zb family updated on plan of care and expected duration. Pain level reassessed. Patient is alert, oriented x 3, equal unlabored respirations, skin warm/dry/pink. post op shoe applied. Vital Signs: 17:33 BP 135 / 68; Pulse 59; Resp 17; Temp 98.0(TE); Pulse Ox 100% on R/A; Weight 64 kg; kg Height 5 ft. 1 in. (154.94 cm); Pain 10/10; 17:33 Body Mass Index 26.66 (64.00 kg, 154.94 cm) kg ED Course: 16:36 Patient arrived in ED. ds1 17:36 Triage completed. kg 17:42 Evelyne Panchal RN is Primary Nurse. zb 17:45 [facility] Mcqueen FNP-C [facility]. kb 17:45 Fang Vargas MD is Attending Physician. kb 18:01 Patient has correct armband on for positive identification. Bed in low position. Door zb closed. Noise minimized. 18:14 Foot Left 3 View XRAY In Process Unspecified. EDMS 18:14 Tib Fib Left XRAY In Process Unspecified. EDMS 19:05 Attending Physician role handed off by Fang Vargas MD [facility] 19:05 Mahamed Gill MD is Attending Physician. 7 20:06 Johnie Damon MD is Referral Physician. mh7 20:25 No provider procedures requiring assistance completed. Patient did not have IV access zb during this emergency room visit. 20:26 Arm band placed on. zb Administered Medications: 17:57 Drug: HYDROcodone-acetaminophen 5 mg-325 mg 1 tabs {Note: RASS 0.} Route: PO; zb 18:30 Follow up: Response: No adverse reaction; Marked relief of symptoms; Pain is decreased; zb RASS: Alert and Calm (0) Outcome: 20:07 Discharge ordered by . 7 20:25 Discharged to home ambulatory. zb 20:25 Condition: stable 20:25 Discharge instructions given to patient, Instructed on discharge instructions, follow up and referral plans. medication usage, Demonstrated understanding of instructions, follow-up care, medications, Prescriptions given X 1. 20:27 Patient left the ED. zb Signatures: Dispatcher [employer] EDSC Margret Mcqueen FNP-C [employer]-Taylor Gonzalez ds1 Fang Vargas MD MD ma2 Holmes, Maurice, MD MD 7 Evelyne Panchal RN RN zb Anita Ortiz RN RN kg
--- NOTE | 2021-05-10 20:07 | EDPHYS ---
Physician Documentation [facility] Name: Glenna Perdue Age: 71 yrs Sex: Female : 1950 Arrival Date: 05/10/2021 Time: 16:36 Bed 14 Private MD: ED Physician Mahamed Gill HPI: 05/10 18:17 This 71 yrs old Female presents to ER via Ambulatory with complaints of Ankle ma2 Injury. 18:17 The patient presents with an abrasion, a contusion, pain. Onset: The symptoms/episode ma2 began/occurred gradually, 4 day(s) ago. Associated signs and symptoms: Pertinent negatives: nausea, rash, tingling, vomiting. Severity of symptoms: At their worst the symptoms were mild, in the emergency department the symptoms are unchanged. The patient has not experienced similar symptoms in the past. Historical: - Allergies: 17:36 Aspirin; kg 17:36 Codeine; kg 17:36 PENICILLINS; kg 17:36 Sulfa (Sulfonamide Antibiotics); kg - Home Meds: 17:36 None [Active]; kg - PMHx: 17:36 None; kg - PSHx: 17:36 None; kg 17:36 hysterectomy; bladder suspenssion; kg - Immunization history:: Adult Immunizations not up to date, Client reports receiving the 1st dose of the Covid vaccine, October 2020. - Social history:: Smoking status: Patient denies any tobacco usage or history of. - Family history:: not pertinent. ROS: 18:17 Constitutional: Negative for fever, chills, and weight loss. ma2 18:17 All other systems are negative. Exam: 18:17 Constitutional: This is a well developed, well nourished patient who is awake, alert, ma2 and in no acute distress. Neck: Trachea midline, no thyromegaly or masses palpated, and no cervical lymphadenopathy. Supple, full range of motion without nuchal rigidity, or vertebral point tenderness. No Meningismus. Chest/axilla: Normal chest wall appearance and motion. Nontender with no deformity. No lesions are appreciated. Cardiovascular: Regular rate and rhythm with a normal S1 and S2. No gallops, murmurs, or rubs. Normal PMI, no JVD. No pulse deficits. Respiratory: Lungs have equal breath sounds bilaterally, clear to auscultation and percussion. No rales, rhonchi or wheezes noted. No increased work of breathing, no retractions or nasal flaring. Abdomen/GI: Soft, non-tender, with normal bowel sounds. No distension or tympany. No guarding or rebound. No evidence of tenderness throughout. Back: No spinal tenderness. No costovertebral tenderness. Full range of motion. Skin: Warm, dry with normal turgor. Normal color with no rashes, no lesions, and no evidence of cellulitis. MS/ Extremity: Pulses equal, no cyanosis. Neurovascular intact. Full, normal range of motion. Neuro: Awake and alert, GCS 15, oriented to person, place, time, and situation. Cranial nerves II-XII grossly intact. Motor strength 5/5 in all extremities. Sensory grossly intact. Cerebellar exam normal. Normal gait. Vital Signs: 17:33 BP 135 / 68; Pulse 59; Resp 17; Temp 98.0(TE); Pulse Ox 100% on R/A; Weight 64 kg; kg Height 5 ft. 1 in. (154.94 cm); Pain 10/10; 17:33 Body Mass Index 26.66 (64.00 kg, 154.94 cm) kg MDM: 17:45 Patient medically screened. kb 18:17 Differential diagnosis: fracture, sprain, arthritis. Data reviewed: vital signs, nurses ma2 notes. Counseling: I had a detailed discussion with the patient and/or guardian regarding: the historical points, exam findings, and any diagnostic results supporting the discharge/admit diagnosis, the presence of at least one elevated blood pressure reading (>120/80) during this emergency department visit, the need for outpatient follow up. Response to treatment: the patient's symptoms have markedly improved after treatment. 05/10 17:37 Order name: Foot Left 3 View XRAY; Complete Time: 19:45 kb 05/10 17:50 Order name: Tib Fib Left XRAY; Complete Time: 19:45 ma2 05/10 19:02 Order name: Splint: hard sole post op shoe, left; Complete Time: 19:27 ma2 Administered Medications: 17:57 Drug: HYDROcodone-acetaminophen 5 mg-325 mg 1 tabs {Note: RASS 0.} Route: PO; zb 18:30 Follow up: Response: No adverse reaction; Marked relief of symptoms; Pain is decreased; zb RASS: Alert and Calm (0) Disposition Summary: 05/10/21 20:07 Discharge Ordered Location: Home [facility] Problem: new [facility] Symptoms: have improved [facility] Condition: Stable [facility] Diagnosis - Ankle Sprain, Left mh7 Followup: [facility] - With: Private Physician - When: 1 - 2 days - Reason: Worsening of condition, Recheck today's complaints, Continuance of care, Re-evaluation by your physician Followup: [facility] - With: Johnie Damon MD - When: 2 - 3 days - Reason: Worsening of condition, Recheck today's complaints Discharge Instructions: - Discharge Summary Sheet ma2 - Ankle Sprain, [id number] Forms: - Medication Reconciliation Form [facility] - Thank You Letter [facility] - Antibiotic Education [facility] - Prescription Opioid Use [facility] Prescriptions: - Diclofenac Sodium 75 mg Oral Tablet Sustained Release - take 1 tablet by ORAL route 2 times per day; 30 tablet; Refills: 0, Product ma2 Selection Permitted Signatures: Dispatcher [employer] EDMS Margret Mcqueen, KAL[employer] HOSTING ENGINEER-CkFang Henry MD MD la2 Mahamed Gill MD MD 7 Evelyne Panchal RN RN zb Anita Ortiz RN RN kg Corrections: (The following items were deleted from the chart) 18:14 17:50 Ankle Left 3 View+RAD.RAD.BRZ ordered. [facility] PRESTONMS
[2021-05-10 20:32] VITALS: BP 135/68; TEMP 98; O2SAT 100
== END 2021-05-10 20:27 | disposition home or self-care (01) ==
LOC: ER 16:31
DX: S93.402A Sprain of unspecified ligament of left ankle, initial encounter (principal); Z88.0 Allergy status to penicillin; Z88.2 Allergy status to sulfonamides; Z88.5 Allergy status to narcotic agent; Z88.6 Allergy status to analgesic agent
CPT/HCPCS: 99283

== ENCOUNTER 2022-10-11 20:47 | Emergency (ER) | payer OTHER ==
--- OUTSIDE RECORDS SUMMARY | 2022-10-11 20:52 | XMS REPORT | Continuity of Care Document ---
:1950 Author Organization [facility] t Address [address] [place] [address] Care Team Providers Name Role Phone Nena Arriaga MD Primary Care Physician Brian Oseguera Attending Clinician Unavailable ANN MARIE IRAHETA Attending Clinician Unavailable Bhargav Brannon Attending Clinician Unavailable Lab, Adc Fam Pob I Attending Clinician Unavailable Sarah Babcock Attending Clinician SARAH MAYBERRY Attending Clinician Unavailable Doctor Unassigned, [place] Attending Clinician Unavailable Only, Adc Test Attending Clinician Unavailable Bernardo Iqbal MD Attending Clinician Gem Cage Attending Clinician Sandie Gautam Attending Clinician SANDIE RAY Attending Clinician Unavailable BHARGAV BRANNON Attending Clinician Unavailable Chandan Kuo Attending Clinician Unavailable Payers Payer Name Policy Type Policy Number Effective Date Expiration Date S amaris MEDICARE PART A [id number] 2017 \T\ B 00:00:00 1490 Medicare [id number] Problems Condition Condition Condition Status Onset Resolution Last Treating Co mments Source Name Details Category Date Date Treatment Clinician Date [id number] Seasonal Problem Active Comm on allergies Spirit - [facility] [id number] Family Problem Active Common history of Spirit diabetes - CHI mellitus [facility] [id number] Right Problem Active Common lower Spirit quadrant - CHI abdominal [facility] [id number] Acute Problem Active Common stress [facility] reaction - [facility] [id number] Red tongue Problem Active Co mmon [facility] [id number] Allergic Problem Active Commo n rhinitis, Spirit unspecifie - CHI d [facility] y, Medical unspecifie [place] d trigger [id number] Tongue Problem Active Common swelling [facility] - [facility] [id number] Strep Problem Active Common pharyngiti Spirit s [facility] Allergies, Adverse Reactions, Alerts Allergy Allergy Status Severity Reaction(s) Onset Inactive Treating Comm ents Source Name Type Date Date Clinician Penicill Propensi Active Shortness of Univers ins ty to Breath 11-15 ity of adverse 00:00: [place] reaction 00 Medical s Branch Sulfa Propensi Active Rash Univers (Sulfona ty to 11-15 ity of mide adverse 00:00: [place] Antibiot reaction 00 Medica l ics) s Branch Acetamin Propensi Active Other - See fatigue Univers ophen-Co ty to comments 11-15 ity of deine adverse 00:00: [place] reaction 00 Medical s Branch PENICILL Drug Active SOB Univers INS Class 11-15 ity of 00:00: [place] 00 Medical Branch ACETAMIN DRUG Active Rash Univers OPHEN INGREDI 11-15 ity of 00:00: [place] 00 Medical Branch SULFA Drug Active Rash Univers (SULFONA Class 11-15 ity of MIDE 00:00: [place] ANTIBIOT 00 Medical ICS) Branch ACETAMIN DRUG Active Med Other-Cmnt Univ ers OPHEN-CO 11-15 ity of DEINE 00:00: [place] 00 Medical Branch NO KNOWN Drug Active Univers ALLERGIE Class ity of S [facility] aspirin aspirin Active generalized Com mon weakness [facility] Codeine Codeine Active dizziness, Comm on nausea [facility] Social History Social Habit Start Date Stop Date Quantity Comments Source History of Tobacco Common Spirit - [facility]I Use [facility] Exposure to Not sure [facility] SARS-CoV-2 (event) Gokul Arguello Sex Assigned At [birth year] [facility] 00:00:00 00:00:00 Smoking Status Start Date Stop Date Source Tobacco smoking consumption Meth [facility] unknown Never Smoker Common Spirit - CHI [facility] Medications Ordered Filled Start Stop Current Ordering Indication Dosage Frequency Signature Comments Components Source Medication Medication Date Date Medication? Clinician (SIG) Name Name Zofran 4 MG Zofran 4 MG No 1{table Zofran 4 3-01 t} MG 00:00: 00 Zofran 4 MG Zofran 4 MG No 1{table Zofran 4 3-01 t} MG 00:00: 00 Zofran 4 MG Zofran 4 MG No 1{table Zofran 4 3-01 t} MG 00:00: 00 Zofran 4 MG Zofran 4 MG No 1{table Zofran 4 3-01 t} MG 00:00: 00 acetaminoph 2020- No 650mg 650 mg, U nivers en 11-16 Oral, ity of (TYLENOL) 02:15: 01:17 ONCE, 1 [place] tablet 650 00 :00 dose, [facility] Medi leighann mg 11/15/20 at Branch 2014, MELECIO NaCl 0.9% 2020- No 1000mL at 999 Uni vers (NS) bolus 11-16 mL/hr, ity of infusion 00:15: 01:16 1,000 mL, [place] as 1,000 mL 00 :00 IV Medical Infusion, [place] ONCE, 1 dose, Corazon 11/15/20 at 1815, STAT Fluticasone Fluticasone Yes Nena 1 spray in Common Propionate Propionate 7-18 [place] each Spirit 00:00: nostril - CHI 00 [facility] Fluticasone Fluticasone No 1{spray QD Fluticason Propionate Propionate 7-18 _in_eac e 50 MCG/ACT 50 MCG/ACT 00:00: h_nostr Propionate 00 il} 50 MCG/ACT Fluticasone Fluticasone No 1{spray QD Fluticason Propionate Propionate 7-18 _in_eac e 50 MCG/ACT 50 MCG/ACT 00:00: h_nostr Propionate 00 il} 50 MCG/ACT Fluticasone Fluticasone 2019-0 No 1{spray QD Fluticason Propionate Propionate 7-18 _in_eac e 50 MCG/ACT 50 MCG/ACT 00:00: h_nostr Propionate 00 il} 50 MCG/ACT Fluticasone Fluticasone 2018-0 No 1{spray QD Fluticason Propionate Propionate 7-18 _in_eac e 50 MCG/ACT 50 MCG/ACT 00:00: h_nostr Propionate 00 il} 50 MCG/ACT Fluticasone Fluticasone 2018-0 No 1{spray QD Fluticason Propionate Propionate 7-18 _in_eac e 50 MCG/ACT 50 MCG/ACT 00:00: h_nostr Propionate 00 il} 50 MCG/ACT Medrol Medrol 2019-0 Yes Nena as Common 5-16 [place] directed Spirit 00:00: - CHI [facility] Medrol 4 MG Medrol 4 MG 2018-0 No Medrol 4 5-16 MG 00:00: 00 Solumedrol Solumedrol 2019-0 No C ommon 125mg/2ml 125mg/2ml 5-16 Spiri t 00:00: - CHI [facility] Medrol 4 MG Medrol 4 MG 2018-0 No Medrol 4 5-16 MG 00:00: 00 Solumedrol Solumedrol 2019-0 No C ommon 125mg/2ml 125mg/2ml 5-16 Spiri t 00:00: - CHI [facility] Medrol 4 MG Medrol 4 MG 2019-0 No Medrol 4 5-16 MG 00:00: 00 Solumedrol Solumedrol 2019-0 No C ommon 125mg/2ml 125mg/2ml 5-16 Spiri t 00:00: - CHI [facility] Medrol 4 MG Medrol 4 MG 2019-0 No Medrol 4 5-16 MG 00:00: 00 Solumedrol Solumedrol 2019-0 No C ommon 125mg/2ml 125mg/2ml 5-16 Spiri t 00:00: - CHI [facility] Medrol 4 MG Medrol 4 MG 2018-0 No Medrol 4 5-16 MG 00:00: 00 Solumedrol Solumedrol 2019-0 No C ommon 125mg/2ml 125mg/2ml 5-16 Spiri t 00:00: - CHI 00 [facility] Zofran 4 MG Zofran 4 MG 2018-1 No 1{table Zofran 4 1-21 t} MG 00:00: 00 Zofran 4 MG Zofran 4 MG 2018-1 No 1{table Zofran 4 1-21 t} MG 00:00: 00 Zofran Zofran 2018-1 Yes Nena 1 tablet Comm on 11-08 [place] Spirit 00:00: - CHI 00 [facility] Zofran 4 MG Zofran 4 MG 2018-1 No 1{table Zofran 4 1-21 t} MG 00:00: 00 Zofran 4 MG Zofran 4 MG 2018-1 No 1{table Zofran 4 1-21 t} MG 00:00: 00 Zofran 4 MG Zofran 4 MG 2018-1 No 1{table Zofran 4 1-21 t} MG 00:00: 00 HydrOXYzine HydrOXYzine 2018-0 Yes Nena 1 tablet Common HCl HCl 7-05 [place] as needed Spiri t 00:00: - CHI 00 [facility] hydrOXYzine hydrOXYzine 2018-0 No 1{table TID hydrOXYzin HCl 25 MG HCl 25 MG 7-05 t_as_ne e HCl 25 00:00: eded} MG 00 hydrOXYzine hydrOXYzine 2018-0 No 1{table TID hydrOXYzin HCl 25 MG HCl 25 MG 7-05 t_as_ne e HCl 25 00:00: eded} MG 00 hydrOXYzine hydrOXYzine 2018-0 No 1{table TID hydrOXYzin HCl 25 MG HCl 25 MG 7-05 t_as_ne e HCl 25 00:00: eded} MG 00 hydrOXYzine hydrOXYzine 2018-0 No 1{table TID hydrOXYzin HCl 25 MG HCl 25 MG 7-05 t_as_ne e HCl 25 00:00: eded} MG 00 hydrOXYzine hydrOXYzine 2018-0 No 1{table TID hydrOXYzin HCl 25 MG HCl 25 MG 7-05 t_as_ne e HCl 25 00:00: eded} MG 00 Fish Oil Fish Oil Yes Nena 1 capsule C ommon [place] Spirit - [facility] Singulair Singulair Yes Nena 1 tablet Common [place] Spirit - [facility] Shaista Shaista Yes Nena 1 tablet Comm on Allergy Allergy [place] as needed [facility] Alcortin A Alcortin A Yes Nena 1 Co mmon [place] applicatio Spir it n to - CHI affected St area as [facility] Biotin Biotin No Biotin Plus/Calciu Plus/Calciu Plus/Calci m/Vit D3 m/Vit D3 um/Vit D3 L-Citrullin L-Citrullin No L-Citrulli e e ne Singulair Singulair No 1{table QD Singulair 10 MG 10 MG t} 10 MG Fish Oil Fish Oil No 1{capsu QD Fish Oil 1000 MG 1000 MG le} 1000 MG Calcium & Calcium & No Calcium & Magnesium Magnesium Magnesium Carbonates Carbonates Carbonates Redfox 3 Redfox 3 No Redfox 3 Zinc Zinc No Zinc Alcortin A Alcortin A No 1{appli BID Alcortin A 1-2-1 % 1-2-1 % cation_ 1-2-1 % to_affe cted_ar ea_as_n eeded} Shaista Shaista No 1{table QD Shaista Allergy 180 Allergy 180 t_as_ne Allergy MG MG eded} 180 MG Zinc Zinc No Zinc Shaista Shaista No 1{table QD Shaista Allergy 180 Allergy 180 t_as_ne Allergy MG MG eded} 180 MG Fish Oil Fish Oil No 1{capsu QD Fish Oil 1000 MG 1000 MG le} 1000 MG Alcortin A Alcortin A No 1{appli BID Alcortin A 1-2-1 % 1-2-1 % cation_ 1-2-1 % to_affe cted_ar ea_as_n eeded} L-Citrullin L-Citrullin No L-Citrulli e e ne Calcium & Calcium & No Calcium & Magnesium Magnesium Magnesium Carbonates Carbonates Carbonates Redfox 3 Redfox 3 No Redfox 3 Singulair Singulair No 1{table QD Singulair 10 MG 10 MG t} 10 MG Shaista Shaista No 1{table QD Shaista Allergy 180 Allergy 180 t_as_ne Allergy MG MG eded} 180 MG Fish Oil Fish Oil No 1{capsu QD Fish Oil 1000 MG 1000 MG le} 1000 MG L-Citrullin L-Citrullin No L-Citrulli e e ne Zinc Zinc No Zinc Alcortin A Alcortin A No 1{appli BID Alcortin A 1-2-1 % 1-2-1 % cation_ 1-2-1 % to_affe cted_ar ea_as_n eeded} Redfox 3 Redfox 3 No Redfox 3 Calcium & Calcium & No Calcium & Magnesium Magnesium Magnesium Carbonates Carbonates Carbonates Singulair Singulair No 1{table QD Singulair 10 MG 10 MG t} 10 MG Calcium & Calcium & No Calcium & Magnesium Magnesium Magnesium Carbonates Carbonates Carbonates L-Citrullin L-Citrullin No L-Citrulli e e ne Redfox 3 Redfox 3 No Redfox 3 Alcortin A Alcortin A No 1{appli BID Alcortin A 1-2-1 % 1-2-1 % cation_ 1-2-1 % to_affe cted_ar ea_as_n eeded} Zinc Zinc No Zinc Shaista Shaista No 1{table QD Shaista Allergy 180 Allergy 180 t_as_ne Allergy MG MG eded} 180 MG Fish Oil Fish Oil No 1{capsu QD Fish Oil 1000 MG 1000 MG le} 1000 MG Singulair Singulair No 1{table QD Singulair 10 MG 10 MG t} 10 MG Calcium & Calcium & No Calcium & Magnesium Magnesium Magnesium Carbonates Carbonates Carbonates L-Citrullin L-Citrullin No L-Citrulli e e ne Redfox 3 Redfox 3 No Redfox 3 Alcortin A Alcortin A No 1{appli BID Alcortin A 1-2-1 % 1-2-1 % cation_ 1-2-1 % to_affe cted_ar ea_as_n eeded} Zinc Zinc No Zinc Shaista Shaista No 1{table QD Shaista Allergy 180 Allergy 180 t_as_ne Allergy MG MG eded} 180 MG Fish Oil Fish Oil No 1{capsu QD Fish Oil 1000 MG 1000 MG le} 1000 MG Singulair Singulair No 1{table QD Singulair 10 MG 10 MG t} 10 MG Vital Signs Vital Name Observation Time Observation Value Comments Source height 2022-06-12 11:40:00 62 [in_i] [facility] weight 2022-06-12 11:40:00 140 [lb_av] [facility] temperature 2022-06-12 11:40:00 97.9 [degF] [facility] bmi 2022-06-12 11:40:00 25.6 kg/m2 [facility] oximetry 2022-06-12 11:40:00 97 % [facility] respiratory rate 2022-06-12 11:40:00 18 /min Comm on [facility] blood pressure 2022-06-12 11:40:00 132 mm[Hg] [facility] systolic [facility] blood pressure 2022-06-12 11:40:00 76 mm[Hg] [facility] diastolic [facility] height 2022-04-23 13:40:00 64 [in_i] [facility] weight 2022-04-23 13:40:00 141.0 [lb_av] [facility] temperature 2022-04-23 13:40:00 98.6 [degF] [facility] bmi 2022-04-23 13:40:00 24.2 kg/m2 [facility] height 2021-12-17 13:00:00 64 [in_i] [facility] weight 2021-12-17 13:00:00 141.2 [lb_av] [facility] bmi 2021-12-17 13:00:00 24.23 kg/m2 [facility] Systolic blood 2020-11-16 01:00:00 143 mm[Hg] [facility] Diastolic blood 2020-11-16 01:00:00 68 mm[Hg] Unive [facility] Heart rate 2020-11-16 01:00:00 67 /min [facility] Respiratory rate 2020-11-16 01:00:00 16 /min [facility] Oxygen saturation in 2020-11-16 01:00:00 100 /min University of Arterial blood by [facility] Pulse oximetry Branch Body height 2020-11-15 22:48:00 154.9 cm [facility] [place] [facility] [place] Body weight 2020-11-15 22:48:00 63.504 kg [facility] BMI 2020-11-15 22:48:00 26.45 kg/m2 Universi ty [facility] Systolic blood 2020-11-16 01:00:00 143 mm[Hg] [facility] blood 2020-11-16 01:00:00 68 mm[facility]Hg[facility] 2020-11-16 01:00:00 67 /min [facility] [place] [facility] [place] Respiratory rate 2020-11-16 01:00:00 16 /min [facility] [place] [facility] Oxygen saturation in 2020-11-16 01:00:00 100 /min University of Arterial blood by [facility] Pulse oximetry Branch Body height 2020-11-15 22:48:00 154.9 cm [facility] [place] [facility] [place] Body weight 2020-11-15 22:48:[address] [facility] [place] BMI 2020-11-15 22:48:00 26.45 kg/m2 General acute hospital Procedures Procedure Date / Time Performing Clinician Source Performed COVID-19 (MOLECULAR 2021-05-25 18:28:00 Sarah Mayberry [facility] TESTING [facility] NUCLEIC ACID AMPLIFICATION) LAB ONLY COVID 2021-05-25 18:28:00 Sarah Mayberry [facility] INTERPRETATION [facility] PATIENT FINANCIAL 2021-05-25 18:25:48 Doctor Unassigned, [facility] POLICY [place] [facility] NO SHOW OR MISSED 2021-05-25 18:25:34 Doctor Unassigned, [facility] APPOINTMENT POLICY [place] [facility] ACKNOWLEDGEMENT NOTICE OF BILLING 2021-01-03 15:15:50 Doctor Unassigned, [facility] PRACTICES FOR MEDICARE [place] [facility] PATIENTS NOTICE OF PRIVACY 2020-11-15 22:45:40 Doctor Unassigned, [facility] PRACTICES [place] [facility] CONSENT/REFUSAL FOR 2020-11-15 22:45:24 Doctor Unassigned, [facility] DIAGNOSIS AND TREATMENT [place] [facility] Plan of Care Planned Activity Planned Date Details Comments Source Future Scheduled 2022-10-03 BREAST CANCER [facility] Test 05:28:22 SCREENING [code = BREAST CANCER SCREENING] Future Scheduled 2022-10-[address] [facility] Test 05:28:22 (procedure) [code = 803968755] Future Scheduled 2022-10-[address] [facility] Test 05:28:22 [code = COLONOSCOPY SCREENING] Future Scheduled 2022-10-03 SHINGLES VACCINES (1 Met [facility] Test 05:28:22 of 2) [code = SHINGLES VACCINES (1 of 2)] Future Scheduled 2022-10-03 65+ [facility] Test 05:28:22 VACCINE (1 - PCV) [code = 65+ PNEUMOCOCCAL VACCINE (1 - PCV)] Future Scheduled 2022-10-03 COVID-19 VACCINE (2 - [facility] Test 05:28:22 Moderna series) [code = COVID-19 VACCINE (2 - Moderna series)] Future Scheduled 2022-10-03 INFLUENZA VACCINE [facility] Test 05:28:22 [code = INFLUENZA VACCINE] Encounters Start End Encounter Admission Attending Care Care Encounter Source Date/Time Date/Time Type Type Clinicians Facility Department ID 2022-04-22 Outpatient Oseguera, [facility] [id number] Common 11:37:00 Brian [id number] [facility] 2021-11-13 Outpatient Oseguera, [facility] [id number] Common 13:44:42 Brian [id number] [facility] 2021-11-13 Outpatient Oseguera, [facility] [id number] Common 12:47:28 Brian [id number] [facility] 2021-08-17 Emergency [facility] [id number] Univers 20:25:54 [facility] 2022-06-12 2022-06-12 OFFICE STLMLC STLMLC [id number] Co mmon 00:00:00 00:00:00 VISIT EST Spir it PT LEVEL 3 - CHI [facility] 2022-04-23 2022-04-23 SUB ANNUAL STLMLC STLMLC [id number] Common 00:00:00 00:00:00 MCR Spirit WELLNESS - CHI VISIT [facility] 2022-04-23 2022-04-23 (TEL) STLMLC STLMLC [id number] Co mmon 00:00:00 00:00:00 Spirit - [facility] 2021-12-17 2021-12-17 OFFICE STLMLC STLMLC [id number] Co mmon 00:00:00 00:00:00 VISIT EST Spir it PT LEVEL 3 - CHI [facility] 2021-12-16 2021-12-16 (TEL) STLMLC STLMLC [id number] Co mmon 00:00:00 00:00:00 [facility]I [facility] 2021-08-28 2021-08-28 Outpatient ANN MARIE IRAHETA [facility] [id number] [place] 00:00:00 00:00:[address] 2021-06-26 2021-06-26 Outpatient BASHIR Brannon [id number] [facility] 09:43:00 09:43:[address] OMAR 2021-05-25 2021-05-25 Laboratory Lab, Adc Fam Pob I [facility] 1.2. [id number] [facility] 13:26:29 13:46:59 Only Sarah Mayberry [id number] itcolin marie [place] [id number] [place] as Professio [phone] [address] Office Building One 2021-05-25 2021-05-25 Outpatient Luz MAYBERRY [facility] [id number] Univers 13:20:00 13:20:00 SARAH cain o f [facility] 2021-05-25 2021-05-25 Orders Doctor TAMEZ 1.2.840.114 [id number] Univers 00:00:00 00:00:00 Only UnassignedPK [id number] ity of [place] [facility] [id number] [place] as [phone] [address] 2021-01-21 2021-01-21 Outpatient STLMLC STLMLC [id number] Common 00:00:00 00:00:00 [facility] 2021-01-21 2021-01-21 Outpatient STLMLC STLMLC [id number] Common 00:00:00 00:00:00 [facility] 2021-01-03 2021-01-03 [facility] [id number] 10:16:33 10:31:33 Only Annabel De Oliveira [id number] [place] [id number] [place] [id number] 353 2021-01-03 2021-01-03 Laboratory Only, Adc Test [facility] 1.2.840. 114 [id number] Univers 10:16:33 10:31:33 Only Bernardo Iqbal [id number] ity of [place] [id number] [facility] [phone] [facility] 353 Branch 2021-01-03 2021-01-03 Outpatient R [facility] [id number] Univers 10:00:00 10:00:00 ity of [facility] 2021-01-03 2021-01-03 Orders Doctor TAMEZ 1.2.840.114 [id number] 00:00:00 00:00:00 Only UnassignedPK [id number] [place] [facility] [id number] [id number] 2021-01-03 2021-01-03 Orders Doctor TAMEZ 1.2.840.114 [id number] Univers 00:00:00 00:00:00 Only UnassignedPK [id number] ity of [place] [facility] [id number] [place] as [phone] [address] 2020-11-15 2020-11-15 Emergency Gem Ortiz [facility] 1.2.840.114 [id number] 16:49:00 19:25:00 Lara De Oliveira [id number] [place] [id number] [place] [id number] [id number] 2020-11-15 2020-11-15 Emergency Gem Ortiz [facility] 1.2.840.114 [id number] Univers 16:49:00 19:25:00 Lara De Oliveira [id number] i ty of [place] [id number] [place] [phone] [address] 2020-10-25 2020-10-25 Laboratory Lab, [facility] 1.2.840.114 [id number] 13:08:21 13:28:21 Only Fam Pob I Health [id number] [place] [id number] Professio [phone] [place] [address] [address] 2020-10-25 2020-10-25 Laboratory Lab, [facility] Fam Pob I [facility] 1.2. 840.114 [id number] [facility] 13:08:21 13:28:21 Only Sandie Ray Channing [id number] ity of [place] [id number] [place] as Professio [phone] Id dical [address] Office Building One 2020-10-25 2020-10-25 Outpatient Luz RAY [facility] [id number] Univers 13:20:00 13:20:00 SANDIE ity of [facility] 2020-10-25 2020-10-25 Letter Doctor TAMEZ 1.2.840.114 [id number] 00:00:00 00:00:00 (Out) UnassignedADINAY [id number] [place] [facility] [id number] [id number] [facility] 2020-10-25 2020-10-25 Letter Doctor TAMEZ 1.2.840.114 [id number] Univers 00:00:00 00:00:00 (Out) Unassigned, PK [id number] ity of [place] [facility] [id number] [place] as [phone] [address] 2020-06-01 2020-06-01 Outpatient CLOVIS [facility] [id number] [place] 00:00:00 00:00:00 GENE [address] 2020-06-01 2020-06-01 Outpatient CLOVIS [facility] [id number] [place] 00:00:00 00:00:[address] GENE [address] 2020-05-16 2020-05-16 Outpatient BASHIR Brannon [id number] [facility] 11:11:00 11:11:[address] OBGYN 2019-10-24 2019-10-24 Outpatient BASHIR Brannon [id number] [facility] 10:28:00 10:28:[address] OBGYN 2019-09-30 2019-09-30 Outpatient [facility] [id number] Common 11:00:00 11:00:00 [facility] [address] [facility] 2019-09-19 2019-09-19 Outpatient [facility] [id number] Common 09:00:00 09:00:00 t [facility] [address] [facility] 2019-05-05 2019-05-05 Outpatient [facility] [id number] Common 09:30:00 09:30:00 t [facility] it [address] [facility] 2019-04-19 2019-04-19 Outpatient BASHIR Brannon [id number] [facility] 10:59:00 10:59:[address] OBGYN 2019-04-18 2019-04-18 Outpatient [facility] [id number] Common 11:29:00 11:29:00 t [facility] it [address] [facility] 2019-04-18 2019-04-18 Outpatient [facility] [id number] Common 10:20:00 10:20:00 t [facility] it [address] [facility] 2019-03-04 2019-03-04 Outpatient [facility] [id number] Common 00:12:00 00:12:00 t [facility] it [address] [facility] 2019-03-03 2019-03-03 Outpatient [facility] [id number] Common 15:00:00 15:00:00 t [facility] Spir it Road [facility] 2018-09-24 2018-09-24 Outpatient Archana Jackman [id number] Common 15:28:00 15:28:[address] [facility] 2018-04-22 2018-04-22 Outpatient Archana Jackman [id number] Common 15:45:00 15:45:[address] Sp[address] [facility] 2018-04-22 2018-04-22 Outpatient Archana Jackman [id number] Common 10:42:00 10:42:00 [facility] Spir it [facility] 2018-03-25 2018-03-25 Outpatient BASHIR Kuo [id number] [facility] 10:48:00 10:48:00 Chandan Crow Results Test Description Test Time Test Comments Results Result Sour e Comments LAB ONLY [facility] InterpretationInte [facility] 15:02:54 rpretation/Recomme Branch ndations:Molecular NAAT Tests for Active Infection with the SARS-CoV-2 Virus:The patient has currently tested negative for the SARS-CoV-2 virus that causes COVID-19 illness. This most likely indicates that the patient does not have an active infection with the SARS-CoV-2 virus. However, infection is not completely ruled out as the false negative rate for molecular NAAT testing using a nasopharyngeal sample can be up to 30%, mostly dependent on the timing of sample collection in relation to illness onset and any deficiencies in sampling techniques. If the patient has symptoms concerning for COVID-19 illness, a repeat NAAT test (PCR, Rapid ID Now, etc.) should be performed, at which time the SARS-CoV-2 virus - if present - may have reached a detectable viral load (usually peaking by the end of the first week of symptoms). Tests for IgM and/or IgG Antibodies to the SARS-CoV-2 Virus:Testing for IgM and IgG antibodies approximately 3 weeks after illness onset will likely indicate if the patient has produced antibodies to the SARS-CoV-2 virus. However, some patients may take longer to develop detectable antibodies, while others infected with SARS-CoV-2 may never develop antibodies, particularly those who have had mild or asymptomatic illness. Of note, if the patient has been vaccinated earlier than 1-2 weeks prior to antibody testing, any positive SARS-CoV-2 IgG antibody result is likely due to vaccination. The specific duration and strength of immunity from SARS-CoV-2 IgG antibodies is highly variable between individuals and is dependent on a variety of factors, including infection vs. vaccination response, initial infection severity, the strength of the patient's own immune system, and the variants to which the patient has been exposed. ? Interpretation Result Comments:These interpretation comments are based upon all COVID-19 testing the patient has had at [facility], including molecular NAAT testing (more commonly known as PCR testing and Rapid ID Now testing) and antibody testing. It does not take into account any testing that a patient has had outside of the [facility] medical record. [facility] [id number] NAAT (no units) ? ? Date ? Value ? 05/25/2021 ? Not Detected ? ? ? 01/03/2021 ? Not Detected ? ? ? 10/25/2020 ? Not Detected ? [facility] COVID-19 (MOLECULAR TESTING 2021-05-26 10:22:13 NUCLEIC ACID AMPLIFICATION) Test Item Value Reference Range Interpretation Comme nts SARS-CoV-2 NAAT (test Not Detected Not Detected Souravcirilo merlyn Aptima code = 68332-9) SARS-CoV-2 A ssay is a nucleic acid amplification t est intended for th e qualitative det ection of RNA from SARS-C oV-2 from nasopharyngeal ([employer]) specimens. It i s used under Emergency Use Authorization ( EUA) by FDA. JON (test code = JON) A positive result is indicative of the presence of SARS-CoV-2 RNA. ?Clinical correlation with patient history and other diagnostic information is necessary to determine patient infection status. A negative (Not Detected) result does not preclude SARS-CoV-2 infection. Clinical correlation with patient history and other diagnostic information should be used in patient management decisions. Invalid: Unable to generate a valid test result on this specimen. Please collect a new specimen for repeat patient testing if clinically indicated. Lab Interpretation (test Normal code = 70521-5) [facility]
[2022-10-11] MEDS ORDERED: NA CHLORIDE 0.9% 1,000 ML ONE (21:52)
[2022-10-11 21:53] LABS: Urine Blood Trace-intact (Negative); Urine Glucose Trace (Negative); Urine Protein 3+ (Negative)
[2022-10-11 22:13] LABS: Absolute Lymphocytes (CBC) 1.3 K/uL (0.7-4.9); Lymphocytes % 29.3 % (15.3-44.8); MCV 89.4 fL (80-100); MPV 10.3 fL (7.6-11.3); RBC Red Blood Cell Count 4.59 M/uL (3.86-4.86)
[2022-10-11 22:18] LABS: Urine Bacteria <20 /HPF (<20); Urine Mucus 3+ /HPF (None Seen); Urine RBC <5 /HPF (None Seen)
[2022-10-11 22:37] LABS: Albumin 3.6 g/dL (3.4-5.0); Bilirubin Total 0.5 mg/dL (0.2-1.0); Potassium 3.3 mmol/L (3.5-5.1); Protein, Total 7.3 g/dL (6.4-8.2)
--- NOTE | 2022-10-11 22:47 | ER ---
Nurse's Notes [facility] Name: Glenna Perdue Age: 72 yrs Sex: Female : 1950 Arrival Date: 10/11/2022 Time: 20:51 Bed 5 Private MD: Diagnosis: UTI/ Urinary tract infection, site not specified Presentation: 10/11 21:23 Chief complaint: Patient states: "I think I have a bladder infection, it davis when I vc1 pee, I have to go more frequently, and I am having some stomach pain, and I feel nauseated". Coronavirus screen: Vaccine status: Patient reports receiving the 1st dose of the Covid vaccine. Moderna. Ebola Screen: No symptoms or risks identified at this time. Initial Sepsis Screen: Does the patient meet any 2 criteria? No. Patient's initial sepsis screen is negative. Does the patient have a suspected source of infection? No. Patient's initial sepsis screen is negative. Risk Assessment: Do you want to hurt yourself or someone else? Patient reports no desire to harm self or others. Onset of symptoms was October 11, 2022. Care prior to arrival: Medication(s) given: Azo around 1700. 21:23 Method Of Arrival: Ambulatory vc1 21:23 Acuity: KONRAD 3 vc1 21:27 Chief complaint: Patient states: "I've also had a cold for a couple of days.". vc1 Historical: - Allergies: 21:25 Aspirin; vc1 21:25 Codeine; vc1 21:25 PENICILLINS; vc1 21:25 Sulfa (Sulfonamide Antibiotics); vc1 - Home Meds: 21:25 None [Active]; vc1 - PMHx: 21:25 None; vc1 - PSHx: 21:25 Bladder Suspension; hysterectomy; vc1 - Immunization history:: Client reports receiving the 1st dose of the Covid vaccine. - Social history:: Smoking status: Patient denies any tobacco usage or history of. - Family history:: not pertinent. Screenin:02 [facility] ED Fall Risk Assessment (Adult) History of falling in the last 3 months, tw5 including since admission No falls in past 3 months (0 pts). Abuse screen: Denies threats or abuse. Denies injuries from another. Nutritional screening: No deficits noted. Tuberculosis screening: No symptoms or risk factors identified. Assessment: 22:02 General: Appears in no apparent distress. Behavior is calm, cooperative, appropriate tw5 for age. General: Reports "I had been sick for the past week, and I guess I wasn't drinking enough water because I got an UTI. I took an azo today. If I pee it seems to release some of the pain, but then it just comes back.". Pain: Complains of pain in groin Pain currently is 5 out of 10 on a pain scale. Neuro: No deficits noted. Cardiovascular: No deficits noted. Respiratory: No deficits noted. GI: Reports nausea. : Reports urgency, urinary frequency. 22:50 Reassessment: No changes from previously documented assessment. Patient and/or family vc1 updated on plan of care and expected duration. Pain level reassessed. Patient is alert, oriented x 3, equal unlabored respirations, skin warm/dry/pink. Vital Signs: 21:23 BP 145 / 71; Pulse 78; Resp 16; Temp 98.1; Pulse Ox 100% ; Weight 62.14 kg; Height 5 vc1 ft. 2 in. (157.48 cm); Pain 8/10; 22:02 BP 154 / 69; Pulse 63; Resp 18; Pulse Ox 100% on R/A; Pain 5/10; tw5 22:50 BP 156 / 86; Pulse 80; Resp 17; Pulse Ox 100% ; vc1 21:23 Body Mass Index 25.06 (62.14 kg, 157.48 cm) vc1 ED Course: 20:51 Patient arrived in ED. as 21:25 Triage completed. vc1 21:26 Arm band placed on left wrist. vc1 21:30 Candido Gutiérrez MD is Attending Physician. rt 21:35 Tasneem Elizabeth is Primary Nurse. tw5 22:02 Awaiting lab results. tw5 22:02 Patient has correct armband on for positive identification. Placed in gown. Bed in low tw5 position. Call light in reach. Side rails up X 1. Pulse ox on. NIBP on. Door closed. Noise minimized. Moved to private room. Warm blanket given. Verbal reassurance given. 22:02 Initial lab(s) drawn, by me, sent to lab. Inserted saline lock: 20 gauge in right tw5 antecubital area, using aseptic technique. Blood collected. 22:04 CBC with Diff Sent. tw5 22:04 CMP Sent. tw5 22:04 Lipase Sent. tw5 22:04 UA MICROSCOPIC Sent. tw5 23:12 No provider procedures requiring assistance completed. IV discontinued, intact, vc1 bleeding controlled, No redness/swelling at site. Pressure dressing applied. Administered Medications: 22:04 Drug: NS 0.9% 1000 ml Route: IV; Rate: 1 bolus; Site: right antecubital; tw5 23:12 Follow up: IV Status: Completed infusion; IV Intake: 1000ml vc1 Medication: 22:02 VIS not applicable for this client. tw5 Intake: 23:12 IV: 1000ml; Total: 1000ml. vc1 Outcome: 22:47 Discharge ordered by MD. rt 23:13 Discharged to home ambulatory. vc1 23:13 Condition: good 23:13 Discharge instructions given to patient, Instructed on discharge instructions, follow up and referral plans. medication usage, Demonstrated understanding of instructions, follow-up care, medications, Prescriptions given X 1. 23:13 Patient left the ED. vc1 Signatures: Brenda Parker Tiffany tw5 Grsi [place], NICKOLAS RN vc1 Candido Gutiérrez MD MD rt Corrections: (The following items were deleted from the chart) 21:26 21:25 PSHx: bladder suspenssion; vc1 vc1
--- NOTE | 2022-10-11 22:47 | EDPHYS ---
Physician Documentation [facility] Name: Glenna Perdue Age: 72 yrs Sex: Female : 1950 Arrival Date: 10/11/2022 Time: 20:51 Bed 5 Private MD: ED Physician Candido Gutiérrez HPI: 10/11 22:57 This 72 yrs old Female presents to ER via Ambulatory with complaints of rt Urinary Problem, Cold Symptoms. 22:57 The patient presents with urinary symptoms, dysuria. Onset: The symptoms/episode rt began/occurred this morning. Modifying factors: The symptoms are alleviated by nothing, the symptoms are aggravated by nothing. Associated signs and symptoms: Pertinent positives: nausea. Severity of symptoms: At their worst the symptoms were moderate. Presents to the ED with dysuria starting this morning. She states over the past few days, she has had cough, congestion. She reports mild nausea without vomiting. Denies other acute complaints at this time, symptoms are moderate in severity, no other aggravating or alleviating factors.. Historical: - Allergies: 21:25 Aspirin; vc1 21:25 Codeine; vc1 21:25 PENICILLINS; vc1 21:25 Sulfa (Sulfonamide Antibiotics); vc1 - Home Meds: 21:25 None [Active]; vc1 - PMHx: 21:25 None; vc1 - PSHx: 21:25 Bladder Suspension; hysterectomy; vc1 - Immunization history:: Client reports receiving the 1st dose of the Covid vaccine. - Social history:: Smoking status: Patient denies any tobacco usage or history of. - Family history:: not pertinent. ROS: 22:57 Constitutional: Negative for fever, chills, and weight loss, Eyes: Negative for injury, rt pain, redness, and discharge, Neck: Negative for injury, pain, and swelling, Cardiovascular: Negative for chest pain, palpitations, and edema, Back: Negative for injury and pain, Skin: Negative for injury, rash, and discoloration, Neuro: Negative for headache, weakness, numbness, tingling, and seizure, Psych: Negative for depression, anxiety, suicide ideation, homicidal ideation, and hallucinations. 22:57 ENT: Positive for rhinorrhea, sinus congestion. 22:57 Respiratory: Positive for cough, Negative for shortness of breath. 22:57 Abdomen/GI: Positive for nausea, Negative for abdominal pain. 22:57 : Positive for burning with urination, Negative for flank pain. Exam: 22:57 Constitutional: This is a well developed, well nourished patient who is awake, alert, rt and in no acute distress. Head/Face: Normocephalic, atraumatic. Eyes: Pupils equal round and reactive to light, extra-ocular motions intact. Lids and lashes normal. Conjunctiva and sclera are non-icteric and not injected. Cornea within normal limits. Periorbital areas with no swelling, redness, or edema. ENT: Nares patent. No nasal discharge, no septal abnormalities noted. Tympanic membranes are normal and external auditory canals are clear. Oropharynx with no redness, swelling, or masses, exudates, or evidence of obstruction, uvula midline. Mucous membranes moist. Neck: Trachea midline, no thyromegaly or masses palpated, and no cervical lymphadenopathy. Supple, full range of motion without nuchal rigidity, or vertebral point tenderness. No Meningismus. Chest/axilla: Normal chest wall appearance and motion. Nontender with no deformity. No lesions are appreciated. Cardiovascular: Regular rate and rhythm with a normal S1 and S2. No gallops, murmurs, or rubs. Normal PMI, no JVD. No pulse deficits. Respiratory: Lungs have equal breath sounds bilaterally, clear to auscultation and percussion. No rales, rhonchi or wheezes noted. No increased work of breathing, no retractions or nasal flaring. Abdomen/GI: Soft, non-tender, with normal bowel sounds. No distension or tympany. No guarding or rebound. No evidence of tenderness throughout. Skin: Warm, dry with normal turgor. Normal color with no rashes, no lesions, and no evidence of cellulitis. MS/ Extremity: Pulses equal, no cyanosis. Neurovascular intact. Full, normal range of motion. Neuro: Awake and alert, GCS 15, oriented to person, place, time, and situation. Cranial nerves II-XII grossly intact. Motor strength 5/5 in all extremities. Sensory grossly intact. Cerebellar exam normal. Normal gait. Psych: Awake, alert, with orientation to person, place and time. Behavior, mood, and affect are within normal limits. Vital Signs: 21:23 BP 145 / 71; Pulse 78; Resp 16; Temp 98.1; Pulse Ox 100% ; Weight 62.14 kg; Height 5 vc1 ft. 2 in. (157.48 cm); Pain 8/10; 22:02 BP 154 / 69; Pulse 63; Resp 18; Pulse Ox 100% on R/A; Pain 5/10; tw5 22:50 BP 156 / 86; Pulse 80; Resp 17; Pulse Ox 100% ; vc1 21:23 Body Mass Index 25.06 (62.14 kg, 157.48 cm) vc1 MDM: 21:36 Patient medically screened. rt 23:03 Differential diagnosis: UTI, pyelo, sepsis. Data reviewed: vital signs, nurses notes, rt lab test result(s). ED course: Patient presents to the ED with dysuria, has nitrite and leukocyte positive urine, will treat as she is symptomatic. She has no clinical indicators for sepsis, labs are benign. Patient stable for outpatient care. Do not suspect pyelonephritis. Return precautions discussed. 10/11 21:41 Order name: CBC with Diff; Complete Time: 22:38 rt 10/11 21:41 Order name: CMP; Complete Time: 22:38 rt 10/11 21:41 Order name: Lipase; Complete Time: 22:38 rt 10/11 21:41 Order name: UA MICROSCOPIC; Complete Time: 22:38 rt 10/11 21:54 Order name: Urine Dipstick-Ancillary; Complete Time: 22:38 EDMS 10/11 21:41 Order name: Urine Dipstick-Ancillary (obtain specimen); Complete Time: 22:04 rt Administered Medications: 22:04 Drug: NS 0.9% 1000 ml Route: IV; Rate: 1 bolus; Site: right antecubital; tw5 23:12 Follow up: IV Status: Completed infusion; IV Intake: 1000ml vc1 Disposition Summary: 10/11/22 22:47 Discharge Ordered Location: Home rt Problem: new rt Symptoms: are unchanged rt Condition: Stable rt Diagnosis - UTI/ Urinary tract infection, site not specified rt Followup: rt - With: Private Physician - When: 2 - 3 days - Reason: Discharge Instructions: - Discharge Summary Sheet rt - Urinary Tract Infection, Adult rt Forms: - Medication Reconciliation Form rt - Thank You Letter rt - Antibiotic Education rt - Prescription Opioid Use rt Prescriptions: - Macrobid 100 mg Oral Capsule - take 1 capsule by ORAL route every 12 hours for 7 days; 14 capsule; Refills: 0, rt Product Selection Permitted Signatures: Dispatcher [employer] Tasneem Shipley tw5 Gris [place] RN RN vc1 Candido Gutiérrez MD MD rt Corrections: (The following items were deleted from the chart) 21:26 21:25 PSHx: bladder suspenssion; vc1 vc1
[2022-10-11 23:33] VITALS: TEMP 98.1; O2SAT 100
[2022-10-11 23:35] VITALS: BP 156/86
== END 2022-10-11 23:13 | disposition home or self-care (01) ==
LOC: ER 20:47
DX: N39.0 Urinary tract infection, site not specified (principal); Z88.0 Allergy status to penicillin; Z88.2 Allergy status to sulfonamides; Z88.5 Allergy status to narcotic agent; Z88.6 Allergy status to analgesic agent
CPT/HCPCS: 85025; 36415; 83690; 80053; J7030; 81003; 81015; 96360; 99284

== ENCOUNTER 2023-03-16 16:41 | Emergency (ER) | payer OTHER ==
--- OUTSIDE RECORDS SUMMARY | 2023-03-16 16:55 | XMS REPORT | Continuity of Care Document ---
:1950 Author Organization [facility] t Address [address] [facility] [place] [address] Care Team Providers Name Role Phone Nena Arriaga MD Primary Care Physician Brian Oseguera Attending Clinician Unavailable ANN MARIE IRAHETA Attending Clinician Unavailable Bhargav Brannon Attending Clinician Unavailable Lab, Adc Fam Pob I Attending Clinician Unavailable Sarah Babcock Attending Clinician SARAH MAYBERRY Attending Clinician Unavailable Doctor Unassigned, [place] Attending Clinician Unavailable Only, Adc Test Attending Clinician Unavailable Bernardo Iqbal MD Attending Clinician Gem Cage Attending Clinician Sandie Gautam Attending Clinician SANDIE TEJEDA Attending Clinician Unavailable BHARGAV BRANNON Attending Clinician Unavailable Chandan Kuo Attending Clinician Unavailable Payers Payer Name Policy Type Policy Number Effective Date Expiration Date S amaris MEDICARE PART A [id number] 2017 \T\ B 00:00:00 1490 Medicare [id number] Problems Condition Condition Condition Status Onset Resolution Last Treating Co mments Source Name Details Category Date Date Treatment Clinician Date [id number] Seasonal Problem Active Comm on allergies [facility] [id number] Family Problem Active Common history of Spirit diabetes - CHI mellitus [facility] [id number] Right Problem Active Common lower [facility] quadrant - CHI abdominal [facility] [id number] Acute Problem Active Common stress [facility] reaction [facility] [id number] Red tongue Problem Active Co mmon [facility] [id number] Allergic Problem Active Commo n rhinitis, Spirit unspecifie - CHI d [facility] y, Medical unspecifie [place] d trigger [id number] Tongue Problem Active Common swelling [facility] [id number] Strep Problem Active Common pharyngiti [facility] s [facility] Allergies, Adverse Reactions, Alerts Allergy Allergy [...] PENICILL Drug Active SOB Univers INS Class - ity of 00:00: [place] 00 Medical Branch ACETAMIN DRUG Active Rash Univers OPHEN INGREDI 11-15 ity of 00:00: [place] 00 Medical Branch SULFA Drug Active Rash 2020-0 Univers (SULFONA Class -28 ity of MIDE 00:00: [place] ANTIBIOT 00 Medical ICS) Branch ACETAMIN DRUG Active Med Other-Cmnt Univ ers OPHEN-CO 11-15 ity of DEINE 00:00: [place] 00 Medical Branch NO KNOWN Drug Active Univers ALLERGIE Class ity of [facility] [place] [facility] aspirin aspirin Active generalized Com mon weakness [facility] Codeine Codeine Active dizziness, Comm on nausea [facility] Social History Social Habit Start Date Stop Date Quantity Comments Source Exposure to Not sure [facility] SARS-CoV-2 (event) Medica l Branch History of Tobacco Common [facility] - [facility]I Use [facility] Center Gender identity [facility] Sexual orientation Method [facility] Sex Assigned At [birth year] Met [facility] 00:00:00 00:00:00 Smoking Status Start Date Stop Date Source Tobacco smoking consumption Meth [facility] unknown Never Smoker Common [facility] Medications Ordered Filled Start Stop Current [...] [place] tablet 650 00 :00 dose, Corazon Medi leighann mg 11/15/20 at Branch 2015, MELECIO NaCl 0.9% 2020- No 1000mL at 999 Uni vers (NS) bolus 11-16 mL/hr, ity of infusion 00:15: 01:16 1,000 mL, [place] as 1,000 mL 00 :00 IV Medical Infusion, [place] ONCE, 1 dose, Corazon 11/15/20 at 1815, STAT Fluticasone Fluticasone Yes Nena 1 spray in Common Propionate Propionate 7-18 Millender each Spirit 00:00: nostril - CHI 00 [facility] Fluticasone Fluticasone No 1{spray QD Fluticason [...] h_nostr Propionate 00 il} 50 MCG/ACT Medrol 4 MG Medrol 4 MG 2018-0 No Medrol 4 5-16 MG 00:00: 00 Solumedrol Solumedrol 2018-0 No C ommon 125mg/2ml 125mg/2ml 5-16 Spiri t 00:00: - CHI 00 [facility] Medrol 4 MG Medrol 4 MG 2018-0 No Medrol 4 5-16 MG 00:00: 00 Solumedrol Solumedrol 2018-0 No C ommon 125mg/2ml 125mg/2ml 5-16 Spiri t 00:00: - CHI 00 [facility] Medrol 4 MG Medrol 4 MG 2018-0 No Medrol 4 5-16 MG 00:00: 00 Solumedrol Solumedrol 2018-0 No C ommon 125mg/2ml 125mg/2ml 5-16 Spiri t 00:00: - CHI 00 [facility] Medrol 4 MG Medrol 4 MG 2018-0 No Medrol 4 5-16 MG 00:00: 00 Solumedrol Solumedrol 2018-0 No C ommon 125mg/2ml 125mg/2ml 5-16 Spiri t 00:00: - CHI 00 [facility] Medrol 4 MG Medrol 4 MG 2018-0 No Medrol 4 5-16 MG 00:00: 00 Solumedrol Solumedrol 2019-0 No C ommon 125mg/2ml 125mg/2ml 5-16 Spiri t 00:00: - CHI 00 [facility] Medrol Medrol 2019-0 Yes Nena as Common 5-16 [place] directed Spirit 00:00: - CHI 00 [facility] Zofran Zofran 2018-1 Yes Nena 1 tablet Comm on 11-08 Millender Spirit 00:00: - CHI 00 [facility] Zofran 4 MG Zofran 4 MG [...] needed Spiri t 00:00: - CHI 00 [facility] hydrOXYzine hydrOXYzine 2017-0 No 1{table TID hydrOXYzin HCl 25 MG [...] 25 00:00: eded} MG 00 hydrOXYzine hydrOXYzine 2017-0 No 1{table TID hydrOXYzin HCl 25 MG HCl 25 MG 7-05 t_as_ne e HCl 25 00:00: eded} MG 00 hydrOXYzine hydrOXYzine 2017-0 No 1{table TID hydrOXYzin HCl 25 MG HCl 25 MG 7-05 t_as_ne e HCl 25 00:00: eded} MG 00 Fish Oil Fish Oil Yes Nena 1 capsule C ommon Millender [facility] Singulair Singulair Yes Nena 1 tablet Common Millender [facility] Shaista Shaista Yes Nena 1 tablet Comm on Allergy Allergy Mill[place] as needed [facility] Alcortin A Alcortin A Yes Nena 1 Co mmon [place] applicatio Spir it n to - CHI affected [facility] Biotin Biotin No Biotin Plus/Calciu Plus/Calciu Plus/Calci m/Vit D3 m/Vit D3 um/Vit D3 L-Citrullin L-Citrullin No L-Citrulli e e ne Singulair Singulair No 1{table QD Singulair 10 MG 10 MG t} 10 MG Fish Oil Fish Oil No 1{capsu QD Fish Oil 1000 MG 1000 MG le} 1000 MG Calcium & Calcium & No Calcium & Magnesium Magnesium Magnesium Carbonates Carbonates Carbonates [place] 3 [place] 3 No [place] 3 Zinc Zinc No Zinc Alcortin A [...] & Magnesium Magnesium Magnesium Carbonates Carbonates Carbonates [place] 3 [place] 3 No [place] 3 Singulair Singulair No 1{table QD Singulair [...] cation_ 1-2-1 % to_affe cted_ar ea_as_n eeded} [place] 3 [place] 3 No [place] 3 Calcium & Calcium & No Calcium & Magnesium Magnesium Magnesium Carbonates Carbonates Carbonates Singulair Singulair No 1{table QD Singulair 10 MG 10 MG t} 10 MG Calcium & Calcium & No Calcium & Magnesium Magnesium Magnesium Carbonates Carbonates Carbonates L-Citrullin L-Citrullin No L-Citrulli e e ne [place] 3 [place] 3 No [place] 3 Alcortin A Alcortin A No 1{appli [...] L-Citrullin L-Citrullin No L-Citrulli e e ne [place] 3 [place] 3 No [place] 3 Alcortin A Alcortin A No 1{appli [...] Comments Source height 2022-06-12 11:40:00 62 [in_i] [facility] weight 2022-06-12 11:40:00 140 [lb_av] [facility] temperature 2022-06-12 11:40:00 97.9 [degF] [facility] bmi 2022-06-12 11:40:00 25.6 kg/m2 [facility] oximetry 2022-06-12 11:40:00 97 % [facility] respiratory rate 2022-06-12 11:40:00 18 /min Comm on [facility] blood pressure 2022-06-12 11:40:00 132 mm[Hg] [facility] systolic [facility] blood pressure 2022-06-12 11:40:00 76 mm[Hg] [facility] diastolic [facility] height 2022-04-23 13:40:00 64 [in_i] [facility] weight 2022-04-23 13:40:00 141.0 [lb_av] [facility] temperature 2022-04-23 13:40:00 98.6 [degF] [facility] bmi 2022-04-23 13:40:00 24.2 kg/m2 [facility] height 2021-12-17 13:00:00 64 [in_i] [facility] weight 2021-12-17 13:00:00 141.2 [lb_av] [facility] bmi 2021-12-17 13:00:00 24.23 kg/m2 [facility] Systolic blood 2020-11-16 01:00:00 143 mm[Hg] Univer sity of pressure [facility] Diastolic blood 2020-11-16 01:00:00 68 mm[Hg] Unive rsity of [facility] Heart rate 2020-11-16 01:00:00 67 /min Universi ty [facility] [place] [facility] Respiratory rate 2020-11-16 01:00:00 16 /min Univ ersity [facility] [place] [facility] Oxygen saturation in 2020-11-16 01:00:00 100 /min University of Arterial blood by [facility] leighann Pulse oximetry Branch Body height 2020-11-15 22:48:00 154.9 cm [facility]i [facility] [place] [facility] Body weight 2020-11-15 22:48:00 63.504 kg [facility] [place] [facility] BMI 2020-11-15 22:48:00 26.45 kg/m2 [facility] [place] [facility] Systolic blood 2020-11-16 01:00:00 143 mm[Hg] Univer sit of [facility] Diastolic blood 2020-11-16 01:00:00 68 mm[Hg] [facility] Heart rate 2020-11-16 01:00:00 67 /min [facility] Respiratory rate 2020-11-16 01:00:00 16 /min [facility] Oxygen saturation in 2020-11-16 01:00:00 100 /min University of Arterial blood by [facility] leighann Pulse oximetry Branch Body height 2020-11-15 22:48:00 154.9 cm [facility] [place] [facility] Body weight 2020-11-15 22:48:00 63.504 kg [facility] [place] [facility] BMI 2020-11-15 22:48:00 26.45 kg/m2 [facility] Branch Procedures Procedure Date / Time Performing Clinician Source Performed COVID-19 (MOLECULAR 2021-05-25 18:28:00 Sarah Mayberry [facility] TESTING [facility] NUCLEIC ACID AMPLIFICATION) LAB ONLY COVID 2021-05-25 18:28:00 Sarah Mayberry [facility] INTERPRETATION [facility] Branch [facility] PATIENT FINANCIAL 2021-05-25 18:25:48 [facility] [place] [facility] NO SHOW OR MISSED 2021-05-25 18:25:34 Doctor Unassigned, [facility] APPOINTMENT POLICY [place] [facility] Bran h ACKNOWLEDGEMENT NOTICE OF BILLING 2021-01-03 15:15:50 Doctor Unassigned, [facility] PRACTICES FOR MEDICARE [place] [facility] B ranch PATIENTS NOTICE OF PRIVACY 2020-11-15 22:45:40 Doctor Unassigned, [facility] PRACTICES [place] [facility] CONSENT/REFUSAL FOR 2020-11-15 22:45:24 Doctor Unassigned, [facility] DIAGNOSIS AND TREATMENT [place] [facility] Plan of Care Planned Activity Planned Date Details Comments Source Future Scheduled 2023-01-23 COVID-19 VACCINE (2 - [facility] Test 14:20:33 Moderna series) [code = COVID-19 VACCINE (2 - Moderna series)] Future Scheduled 2023-01-23 BREAST CANCER [facility] Test 14:20:33 SCREENING [code = BREAST CANCER SCREENING] Future Scheduled 2023-01-23 INFLUENZA VACCINE [facility] Test 14:20:33 [code = INFLUENZA VACCINE] Future Scheduled 2023-01-23 Hepatitis C screening [facility] Hospital Test 14:20:33 (procedure) [code = 385519033] Future Scheduled 2023-01-23 COLONOSCOPY SCREENING [facility] Hospital Test 14:20:33 [code = COLONOSCOPY SCREENING] Future Scheduled 2023-01-23 SHINGLES VACCINES ([address] [facility] Hospital Test 14:20:33 of 2) [code = SHINGLES VACCINES (1 of 2)] Future Scheduled 2023-01-23 65+ PNEUMOCOCCAL [facility] Test 14:20:33 VACCINE (1 - PCV) [code = 65+ PNEUMOCOCCAL VACCINE (1 - PCV)] Future Scheduled 2022-10-03 INFLUENZA VACCINE [facility] Test 05:28:22 [code = INFLUENZA VACCINE] Future Scheduled 2022-10-03 BREAST CANCER [facility] Test 05:28:22 SCREENING [code = BREAST CANCER SCREENING] Future Scheduled 2022-10-03 Hepatitis C screening [facility] Hospital Test 05:28:22 (procedure) [code = 418739947] Future Scheduled 2022-10-03 COLONOSCOPY SCREENING [facility] Hospital Test 05:28:22 [code = COLONOSCOPY SCREENING] Future Scheduled 2022-10-03 SHINGLES VACCINES ([facility] Test 05:28:22 of 2) [code = SHINGLES VACCINES (1 of 2)] Future Scheduled 2022-10-03 65+ [facility]UMOCOCCAL [facility] Test 05:28:22 VACCINE (1 - PCV) [code = 65+ PNEUMOCOCCAL VACCINE (1 - PCV)] Future Scheduled 2022-10-03 COVID-19 VACCINE (2 - [facility] Test 05:28:22 Moderna series) [code = COVID-19 VACCINE (2 - Moderna series)] Encounters Start End Encounter Admission Attending Care Care Encounter Source Date/Time Date/Time Type Type Clinicians Facility Department ID 2022-04-22 Outpatient Oseguera, STLMLC STLC [id number] Common 11:37:00 [facility] [address] [facility] 2021-11-13 Outpatient Oseguera, STLMLC STLC [id number] Common 13:44:42 [facility] [address] [facility] 2021-11-13 Outpatient Oseguera, STLMLC STLC [id number] Common 12:47:28 [facility] [address] [facility] 2021-08-17 Emergency [facility] [id number] Univers 20:25:54 ity of [facility] 2022-06-12 2022-06-12 OFFICE STLC STLC [id number] Co mmon 00:00:00 00:00:00 VISIT EST Spir it PT LEVEL [address] [place] [address] 2022-04-23 2022-04-23 SUB ANNUAL STLC STLC [id number] Common 00:00:00 00:00:00 MCR [facility] VISIT [facility] 2022-04-23 2022-04-23 (TEL) STLC STLMLC [id number] Co mmon 00:00:00 00:00:00 [facility] 2021-12-17 2021-12-17 OFFICE STLMLC STLMLC [id number] Co mmon 00:00:00 00:00:00 VISIT EST Spir it PT LEVEL 3 [facility] 2021-12-16 2021-12-16 (TEL) STLMLC STLMLC [id number] Co mmon 00:00:00 00:00:00 [facility] 2021-08-28 2021-08-28 Outpatient ANN MARIE IRAHETA [facility] [id number] [place] 00:00:00 00:00:[address] 2021-06-26 2021-06-26 Outpatient BASHIR Brannon [id number] [facility] 09:43:00 09:43:[address] [facility] 2021-05-25 2021-05-25 Laboratory Lab, [facility] Fam Pob I [place] 1.2. 840.114 [id number] Univers 13:26:29 13:46:59 Only ShawandaSuzanneSarah [facility] [id number] ity of [place] 4.2.7.2.686 [place] as Professio [phone] [address] Office Building One 2021-05-25 2021-05-25 Outpatient R SHAWANDA [facility] [id number] Univers 13:20:00 13:20:00 SARAH cain o f [facility] 2021-05-25 2021-05-25 Orders Doctor DASHAWN 1.2.840.114 [id number] Univers 00:00:00 00:00:00 Only Unassigned, PK 350.1.13.10 ity of [place] [facility] 4.2.7.2.686 [place] as [phone] [facility] 009 Branch 2021-01-21 2021-01-21 Outpatient STLMLC STLMLC [id number] Common 00:00:00 00:00:00 [facility] 2021-01-21 2021-01-21 Outpatient STLMLC STLMLC [id number] Common 00:00:00 00:00:00 [facility] 2021-01-03 2021-01-03 Laboratory Only, [facility] Test NMMB 1.2.840. 114 [id number] Univers 10:16:33 10:31:33 Only Bernardo Iqbal 350.1.13.10 ity of [place] 4.2.7.2.686 [place] [facility] [phone] [facility] 353 Branch 2021-01-03 2021-01-03 Laboratory Only, [facility] 1.2.840.114 [id number] 10:16:33 10:31:33 Only Test Yennifer 350.1.13.10 [place] 4.2.7.2.686 [place] [id number] 353 2021-01-03 2021-01-03 Outpatient R [facility] [id number] Univers 10:00:00 10:00:00 ity of [facility] 2021-01-03 2021-01-03 Orders Doctor DASHANW 1.2.840.114 [id number] Univers 00:00:00 00:00:00 Only Unassigned, PK 350.1.13.10 ity of [place] [facility] 4.2.7.2.686 [place] as [phone] [facility] 009 Branch 2021-01-03 2021-01-03 Orders Doctor DASHAWN 1.2.840.114 [id number] 00:00:00 00:00:00 Only Unassigned, PK 350.1.13.10 [place] [facility] 4.2.7.2.686 [id number] 009 2020-11-15 2020-11-15 Emergency Diana [facility] 1.2.840.114 [id number] Univers 16:49:00 19:25:00 Lara Andrewton 350.1.13.10 i ty of [place] 4[place]2.7.2.686 [place] [id number] [facility] 084 Branch 2020-11-15 2020-11-15 Emergency Gem Ortiz [facility] 1.2.840.114 [id number] 16:49:00 19:25:00 Lara De Oliveira 350.1.13.10 [place] 4.2.7.2.686 [place] [id number] [id number] 2020-10-25 2020-10-25 Laboratory Lab, [facility] Fam Pob I [facility] 1.2. 840.114 [id number] Univers 13:08:21 13:28:21 Only Anene, [facility] 350.1.13.10 ity of [place] 4.2.7.2.686 [place] as Professio [phone] [facility] [address] [place] [address] 2020-10-25 2020-10-25 Laboratory Lab, [facility] 1.2.840.114 [id number] 13:08:21 13:28:21 Only Fam Pob I Health 350.1.13.10 [place] 4.2.7.2.686 Professio [phone] [facility] 0[address] One 2020-10-25 2020-10-25 Outpatient Luz CORONAPAT, [facility] [id number] Univers 13:20:00 13:20:00 SANDIE ity of [facility] 2020-10-25 2020-10-25 Letter Doctor DASHAWN 1.2.840.114 [id number] [facility] 00:00:00 00:00:00 (Out) Unassigned, PK 350.1.13.10 ity of [place] [facility] 4.2.7.2.686 [place] as [phone] [address] 2020-10-25 2020-10-25 Letter Doctor DASHAWN 1.2.840.114 [id number] 00:00:00 00:00:00 (Out) Unassigned, PK 350.1.13.10 [facility] 4.2.7.2.686 [phone] [facility] 2020-06-01 2020-06-01 Outpatient [facility] [id number] [place] 00:00:00 00:00:00 GENE [address] 2020-06-01 2020-06-01 Outpatient [facility] [id number] [place] [address] 00:00:00 00:00:00 GENE [address] 2020-05-16 2020-05-16 Outpatient BASHIR Brannon [id number] [facility] 11:11:00 11:11:[address] O[facility] 2019-10-24 2019-10-24 Outpatient BASHIR Brannon [id number] [facility] 10:28:00 10:28:[address] O[facility] 2019-09-30 2019-09-30 [facility] [id number] Common 11:00:00 11:00:00 [facility] it [facility] 2019-09-19 2019-09-19 Outpatient [facility] [id number] Common 09:00:00 09:00:00 [facility] it [facility]ly [facility] 2019-05-05 2019-05-05 Outpatient [facility] [id number] Common 09:30:00 09:30:[address] Sp[address] [facility] 2019-04-19 2019-04-19 Outpatient Devyn BASHIR CAMEJO [id number] [facility] 10:59:00 10:59:[address] O[facility]YN 2019-04-18 2019-04-18 Out[facility] [id number] Common 11:29:00 11:29:[address] Sp[address] [facility] 2019-04-18 2019-04-18 Outpatient [facility] [id number] Common 10:20:00 10:20:[address] Sp[address] [facility] 2019-03-04 2019-03-04 Outpatient [facility] [id number] Common 00:12:00 00:12:[address] [facility] 2019-03-03 2019-03-03 Outpatient [facility] [id number] Common 15:00:00 15:00:[address] [facility] 2018-09-24 2018-09-24 Outpatient [facility] [id number] Common 15:28:00 15:28:[address] [facility] 2018-04-22 2018-04-22 Outpatient [facility] [id number] Common 15:45:00 15:45:[address] [facility] 2018-04-22 2018-04-22 Outpatient [facility] [id number] Common 10:42:00 10:42:[address] [facility] 2018-03-25 2018-03-25 Outpatient Ruihr BASHIR CAMEJO [id number] [facility] 10:48:00 10:48:00 Chandan Crow Results Test Description Test Time Test Comments Results Result Sourc e Comments LAB ONLY COVID 2020--0 COVID [facility] 9 [place] [facility] 15:02:54 rpretation/Recomme Branch ndations:Molecular NAAT Tests for [...] COVID-19 testing the patient has had at [facility], including molecular NAAT testing (more commonly known as PCR testing and Rapid ID Now testing) and antibody testing. It does not take into account any testing that a patient has had outside of the [facility] medical record. [facility] LABORATORY SERVICESCOVID IdsyrlfIEUC-InY-4 NAAT (no units) ? ? Date ? Value ? 05/25/2021 ? Not Detected ? ? ? 01/03/2021 ? Not Detected ? ? ? 10/25/2020 ? Not Detected ? [facility] LABORATORY SERVICES COVID-19 (MOLECULAR TESTING 2021-05-26 10:22:13 NUCLEIC ACID AMPLIFICATION) Test Item Value Reference Range Interpretation Comme nts SARS-CoV-2 NAAT (test Not Detected Not Detected Hologi c Aptima code = 89953-7) SARS-CoV-2 A ssay is a nucleic acid amplification t est intended for th e qualitative det ection of RNA from SARS-C oV-2 from nasopharyngeal ([employer] APPRENTICE) specimens. It i s used under Emergency [...] indicated. Lab Interpretation (test Normal code = 64473-9) [facility]
[2023-03-16] MEDS ORDERED: ONDANSETRON 4 MG/2 ML VIAL ONE (17:32)
[2023-03-16] MEDS ORDERED: MORPHINE 4 MG/ML SYR ONE (17:32)
[2023-03-16] MEDS ORDERED: NA CHLORIDE 0.9% 500 ML ONE (17:33)
[2023-03-16 17:40] LABS: Urine Bacteria <20 /HPF (<20); Urine Bilirubin NEGATIVE (Negative); Urine Blood 1+ (Negative); Urine Clarity Clear (Clear); Urine Color Light-Yellow (Yellow); Urine Crystals Unidentified Few /HPF (None Seen); Urine Glucose NEGATIVE (Negative); Urine Mucus Slight /HPF (None Seen); Urine Protein NEGATIVE (Negative); Urine RBC <5 /HPF (None Seen); Urine Urobilinogen Normal (Normal)
[2023-03-16 17:50] LABS: Absolute Lymphocytes (CBC) 1.5 K/uL (0.7-4.9); Hematocrit 38.2 % (36.0-45.0); Lymphocytes % 17.4 % (15.3-44.8); MPV 10.5 fL (7.6-11.3)
[2023-03-16 17:52] LABS: Albumin 3.8 g/dL (3.4-5.0); Bilirubin Total 0.7 mg/dL (0.2-1.0); Potassium 3.4 mEq/L (3.5-5.1); Protein, Total 7.5 g/dL (6.4-8.2)
--- NOTE | 2023-03-16 19:10 | RAD REPORT ---
EXAM DESCRIPTION: CTAbdomen Pelvis W Contrast - 03/16/2023 7:02 pm CLINICAL HISTORY: RLQ abdomen pain COMPARISON: None TECHNIQUE: CT of the abdomen and pelvis was performed. All CT scans are performed using dose optimization technique as appropriate and may include automated exposure control or mA/KV adjustment according to patient size. FINDINGS: Lower chest: No acute abnormality. Liver: No acute abnormality or suspicious lesions. Biliary: No biliary ductal dilatation. Stomach: No significant focal abnormality. Duodenum: No significant focal abnormality. Pancreas: No significant abnormality. Spleen: No significant abnormality. Adrenal: No suspicious lesions. Kidney/ureter: No hydronephrosis. No renal calculi. Retroperitoneum: No retroperitoneal adenopathy. Vascular: No aneurysm. Atherosclerosis . Bowel: Normal appendix.. Peritoneum: No ascites or free air. Bladder: Grossly unremarkable. Reproductive: No adnexal masses. Hysterectomy . Bones: No acute fracture. Other: n/a IMPRESSION: No acute intra-abdominal or pelvic finding.
[2023-03-16] MEDS ORDERED: POTASSIUM 25 MEQ EFFERV TAB ONE (20:07)
--- NOTE | 2023-03-16 20:26 | ER ---
Nurse's Notes [facility] Name: Glenna Perdue Age: 73 yrs Sex: Female : 1950 Arrival Date: 03/16/2023 Time: 16:41 Bed 19 Private MD: Brian Oseguera Diagnosis: Lower abdominal pain, unspecified Presentation: 03/16 16:58 Chief complaint: Patient states: Right lower abdominal pain that started 2 days ago, nj1 radiates to lower back. Has gotten worse. Diarrhea last night. Denies nausea at this moment. No vomiting. States she feels weak and tired when the pain increases. Coronavirus screen: Vaccine status: Patient reports receiving the 1st dose of the Covid vaccine. Ebola Screen: Patient denies travel to an Ebola-affected area in the 21 days before illness onset. Initial Sepsis Screen: Does the patient meet any 2 criteria? No. Patient's initial sepsis screen is negative. Does the patient have a suspected source of infection? No. Patient's initial sepsis screen is negative. Risk Assessment: Do you want to hurt yourself or someone else? Patient reports no desire to harm self or others. Onset of symptoms was March 14, 2023. 16:58 Method Of Arrival: Ambulatory [facility] 16:58 Acuity: KONRAD 3 nj1 Historical: - Allergies: 17:03 Aspirin; nj1 17:03 Codeine; nj1 17:03 PENICILLINS; nj1 17:03 Sulfa (Sulfonamide Antibiotics); nj1 - PMHx: 17:03 None; nj1 - PSHx: 17:03 bladder suspension; hysterectomy; nj1 - Immunization history:: Client reports receiving the 1st dose of the Covid vaccine. - Social history:: Smoking status: Patient denies any tobacco usage or history of. Screenin:29 [facility] ED Fall Risk Assessment (Adult) History of falling in the last 3 months, ld1 including since admission No falls in past 3 months (0 pts). Abuse screen: Denies threats or abuse. Denies injuries from another. Nutritional screening: No deficits noted. Tuberculosis screening: No symptoms or risk factors identified. Assessment: 17:29 Reassessment: See triage assessment. ld1 18:39 Reassessment: Patient appears in no apparent distress at this time. No changes from ld1 previously documented assessment. Patient and/or family updated on plan of care and expected duration. Pain level reassessed. Patient is alert, oriented x 3, equal unlabored respirations, skin warm/dry/pink. Patient states symptoms have improved. 20:04 Reassessment: Patient appears in no apparent distress at this time. Patient and/or as6 family updated on plan of care and expected duration. Pain level reassessed. Patient is alert, oriented x 3, equal unlabored respirations, skin warm/dry/pink. Patient states feeling better. Vital Signs: 16:58 BP 172 / 73; Pulse 77; Resp 17; Temp 98.6(TE); Pulse Ox 100% ; Weight 62.14 kg; Height nj1 5 ft. 2 in. ; Pain 10/10; 20:03 BP 143 / 73; Pulse 75; Resp 18 S; Pulse Ox 99% on R/A; as6 16:58 Body Mass Index 25.06 (62.14 kg, 157.48 cm) [facility] 16:58 Pain Scale: Adult [facility] ED Course: 16:42 Patient arrived in ED. im 16:43 Brian Oseguera DO is Private Physician. im 16:48 [facility] cp 16:48 Hugo Rothman MD is Attending Physician. cp 17:03 Triage completed. nj1 17:03 Arm band placed on right wrist. nj1 17:11 Kristal Smith, RN is Primary Nurse. ld1 17:23 Radiology exam delayed due to lab results not completed at this time. (BUN/Creatinine) jg10 IV insertion attempt and/or patient not having appropriate IV at this time. 17:23 Urinalysis w/ reflexes Sent. ld1 17:29 Patient has correct armband on for positive identification. Placed in gown. Bed in low ld1 position. Call light in reach. Side rails up X2. joint cutter machine on. Pulse ox on. NIBP on. Door closed. Noise minimized. Warm blanket given. 17:29 No provider procedures requiring assistance completed. Inserted saline lock: 20 gauge ld1 in right antecubital area, using aseptic technique. 19:03 CT Abd/Pelvis - IV Contrast Only In Process Unspecified. EDMS 19:55 Primary Nurse role handed off by Kristal Smith, RN rv1 19:57 Slawson, [place], RN is Primary Nurse. as6 20:41 IV discontinued, intact, bleeding controlled, No redness/swelling at site. Pressure as6 dressing applied. Administered Medications: 17:29 Drug: morphine IVP or IV 2 mg Route: IVP; Infused Over: 4 mins; Site: right antecubital;ld1 20:40 Follow up: Response: No adverse reaction as6 17:29 Drug: NS 0.9% IV 500 ml Route: IV; Rate: 100 ml/hr; Site: right antecubital; ld1 20:40 Follow up: Response: No adverse reaction; IV Status: Completed infusion; IV Intake: as6 500ml 20:02 Drug: Potassium PO Effervescent Tablet 25 mEq Route: PO; as6 20:40 Follow up: Response: No adverse reaction as6 Medication: 20:41 VIS not applicable for this client. as6 Intake: 20:40 IV: 500ml; Total: 500ml. as6 Outcome: 20:26 Discharge ordered by MD. cp 20:41 Discharged to home via wheelchair, with family. as6 20:41 Condition: stable 20:41 Discharge instructions given to patient, Instructed on discharge instructions, follow up and referral plans. medication usage, Demonstrated understanding of instructions, follow-up care, medications, Prescriptions given X 2. 20:41 Patient left the ED. as6 Signatures: Dispatcher [employer] EDMS Ata Grullon PA PA cp Kristal Smith, RN RN ld1 José Miguel Concepcion RN RN as6 Jazmyne Valencia jg10 Jaymie Damian rv1 Aixa Madison RN RN nj1 Lillian Bartlett Corrections: (The following items were deleted from the chart) 18:49 18:48 Reassessment: Pt screaming in room - trying to get out of bed. Pulling off cords. ld1 ERP and charge nurse at bedside. Meds administered per MD order. ld1 18:49 18:39 BP 122 / 62; Pulse 85bpm; Resp 19bpm; Pulse Ox 100% RA; ld1 ld1
--- NOTE | 2023-03-16 20:26 | EDPHYS ---
Physician Documentation [facility] Name: Glenna Perdue Age: 73 yrs Sex: Female : 1950 Arrival Date: 03/16/2023 Time: 16:41 Bed 19 Private MD: Oumar [facility] ED Physician Hugo Rothman HPI: 03/16 16:54 This 73 yrs old Female presents to ER via Unassigned with complaints of cp Abdominal Pain. 16:54 The patient presents with abdominal pain right lower quadrant. Onset: The cp symptoms/episode began/occurred 3 day(s) ago. Associated signs and symptoms: Pertinent positives: left lower buttock pain. 16:55 The symptoms are described as achy, waxing/waning. Modifying factors: the symptoms are cp aggravated by movement, pressure. Severity of pain: in the emergency department the pain is unchanged despite home interventions. Historical: - Allergies: 17:03 Aspirin; nj1 17:03 Codeine; nj1 17:03 PENICILLINS; nj1 17:03 Sulfa (Sulfonamide Antibiotics); nj1 - PMHx: 17:03 None; nj1 - PSHx: 17:03 bladder suspension; hysterectomy; nj1 - Immunization history:: Client reports receiving the 1st dose of the Covid vaccine. - Social history:: Smoking status: Patient denies any tobacco usage or history of. ROS: 17:00 Constitutional: Negative for body aches, chills, fever, poor PO intake. cp 17:00 Eyes: Negative for injury, pain, redness, and discharge. cp 17:00 Neck: Negative for pain with movement, pain at rest, stiffness. 17:00 Cardiovascular: Negative for chest pain, edema, palpitations. 17:00 Respiratory: Negative for cough, shortness of breath, wheezing. 17:00 Abdomen/GI: Positive for abdominal pain, Negative for vomiting, diarrhea, constipation. 17:00 Back: Positive for pain across buttock area starting on left, Negative for injury or acute deformity, decreased range of motion. 17:00 : Negative for urinary symptoms. 17:00 Neuro: Negative for altered mental status, dizziness, headache, numbness, weakness. 17:00 All other systems are negative. Exam: 17:05 Constitutional: The patient appears in no acute distress, alert, awake, cp non-diaphoretic, well developed, well nourished. 17:05 Head/Face: Normocephalic, atraumatic. cp 17:05 Eyes: Periorbital structures: appear normal, Conjunctiva: normal, Sclera: no appreciated abnormality, Lids and lashes: appear normal, bilaterally. 17:05 ENT: External ear(s): are unremarkable, Nose: is normal, Mouth: Lips: moist, Oral mucosa: pink and intact, moist, Posterior pharynx: is normal, airway is patent, no erythema, no exudate. 17:05 Neck: ROM/movement: is normal, is supple, without pain, no range of motions limitations. 17:05 Chest/axilla: Inspection: normal. 17:05 Cardiovascular: Rate: normal, Rhythm: regular, Edema: is not appreciated, JVD: is not appreciated. 17:05 Respiratory: the patient does not display signs of respiratory distress, Respirations: normal, no use of accessory muscles, no retractions, labored breathing, is not present, Breath sounds: are clear throughout, no decreased breath sounds, no stridor, no wheezing. 17:05 Abdomen/GI: Inspection: abdomen appears normal, Bowel sounds: active, all quadrants, Palpation: soft, in all quadrants. 17:05 Back: pain, that is mild, of the left buttock, ROM is normal, CVA tenderness, is absent, vertebral tenderness, is not appreciated. 17:05 Skin: cellulitis, is not appreciated, no rash present. Vital Signs: 16:58 BP 172 / 73; Pulse 77; Resp 17; Temp 98.6(TE); Pulse Ox 100% ; Weight 62.14 kg; Height nj1 5 ft. 2 in. ; Pain 10/10; 20:03 BP 143 / 73; Pulse 75; Resp 18 S; Pulse Ox 99% on R/A; as6 16:58 Body Mass Index 25.06 (62.14 kg, 157.48 cm) nj1 16:58 Pain Scale: Adult nj1 MDM: 17:15 Patient medically screened. cp 20:25 Data reviewed: vital signs, nurses notes, lab test result(s), radiologic studies, CT cp scan. 20:25 Differential diagnosis: appendicitis, bowel obstruction, diverticulitis, non-specific cp abd pain, Pyelonephritis, Ureterolithiasis, urinary tract infection, colitis. I considered the following discharge prescriptions or medication management in the emergency department Medications were administered in the Emergency Department. See MAR. Counseling: I had a detailed discussion with the patient and/or guardian regarding: the historical points, exam findings, and any diagnostic results supporting the discharge/admit diagnosis, lab results, radiology results, the need for outpatient follow up, a family practitioner, to return to the emergency department if symptoms worsen or persist or if there are any questions or concerns that arise at home. Response to treatment: the patient's symptoms have markedly improved after treatment, and as a result, I will discharge patient. Special discussion: Based on the patient's Hx, exam, and Dx evaluation, there is no indication for emergent surgery or inpatient Tx. It is understood by the patient/guardian that if the Sx's persist or worsen they need to return immediately for re-evaluation. 03/16 17:11 Order name: CBC with Diff; Complete Time: 18:03 ld1 03/16 18:03 Interpretation: Normal except: PLT 144. 03/16 17:11 Order name: CMP; Complete Time: 18:03 ld1 03/16 18:03 Interpretation: Normal except: K 3.4; GLOB 3.7; A/G 1.0. 03/16 17:11 Order name: Lipase; Complete Time: 18:03 ld03/16 18:03 Interpretation: Reviewed. 03/16 17:11 Order name: Urinalysis w/ reflexes; Complete Time: 18:03 ld1 03/16 18:03 Interpretation: Normal except: UKET TRACE; UBLD 1+. 03/16 17:21 Order name: CT Abd/Pelvis - IV Contrast Only; Complete Time: 19:20 03/16 17:11 Order name: IV Saline Lock; Complete Time: 17:23 ld1 03/16 17:11 Order name: Labs collected and sent; Complete Time: 17:23 ld1 Administered Medications: 17:29 Drug: morphine IVP or IV 2 mg Route: IVP; Infused Over: 4 mins; Site: right antecubital;ld1 20:40 Follow up: Response: No adverse reaction as6 17:29 Drug: NS 0.9% IV 500 ml Route: IV; Rate: 100 ml/hr; Site: right antecubital; ld1 20:40 Follow up: Response: No adverse reaction; IV Status: Completed infusion; IV Intake: as6 500ml 20:02 Drug: Potassium PO Effervescent Tablet 25 mEq Route: PO; as6 20:40 Follow up: Response: No adverse reaction as6 Disposition: 03/17 07:15 Co-signature as Attending Physician, Hugo Rothman MD I reviewed the patient's care rn provided by the Advanced Practice Provider and agree with the diagnosis and treatment plan. Disposition Summary: 03/16/23 20:26 Discharge Ordered Location: Home cp Problem: new cp Symptoms: have improved cp Condition: Stable cp Diagnosis - Lower abdominal pain, unspecified cp Followup: cp - With: Private Physician - When: 2 - 3 days - Reason: Recheck today's complaints Discharge Instructions: - Discharge Summary Sheet cp - Abdominal Pain, Adult cp Forms: - Medication Reconciliation Form cp - Thank You Letter cp - Antibiotic Education cp - Prescription Opioid Use cp Prescriptions: - Mobic 7.5 mg Oral Tablet - take 1 tablet by ORAL route once daily take with food; 20 tablet; Refills: 0, cp Product Selection Permitted - methocarbamol 500 mg Oral Tablet - take 1 tablet by ORAL route 3 times per day As needed; 30 tablet; Refills: 0, cp Product Selection Permitted Signatures: Dispatcher [employer] EDHugo Gifford MD MD rn Page, Corey, PA PA cp Kristal Smith RN RN ld1 José Miguel Concepcion RN RN as6 Aixa Madison RN RN nj1
[2023-03-16 20:55] VITALS: TEMP 98.6
[2023-03-16 20:56] VITALS: BP 143/73; O2SAT 99
== END 2023-03-16 20:41 | disposition home or self-care (01) ==
LOC: ER 16:41
DX: R10.31 Right lower quadrant pain (principal); R19.7 Diarrhea, unspecified; Z88.0 Allergy status to penicillin; Z88.2 Allergy status to sulfonamides; Z88.5 Allergy status to narcotic agent; Z88.6 Allergy status to analgesic agent
CPT/HCPCS: 96361; 85025; 81001; 36415; 83690; 80053; 74177; 96374; 99285; Q9967; J2405; J7040

== ENCOUNTER 2024-10-10 22:34 | Emergency (ER) | payer OTHER ==
--- NOTE | 2024-10-11 02:01 | EDPHYS ---
Physician Documentation [facility] Name: Glenna Perdue Age: 74 yrs Sex: Female : 1950 Arrival Date: 10/10/2024 Time: 22:34 Bed 9 Private MD: ED Physician Hugo Rothman HPI: 10/11 01:23 This 74 yrs old Female presents to ER via Unassigned with complaints of Facial kb Injury, Nose Pain, Lip Injury. 01:23 Pt is a 74 year old female who presents for head injury that occurred at approx 1900 kb tonight. States she was walking fast to catch up to her family after going to the restroom and ran into a door that was locked. States she hit her nose the hardest, but also hit her forehead. States the impact made her neck snap back so she is having neck pain as well. Denies loc. . Historical: - Allergies: 10/10 23:00 Aspirin; vc1 23:00 Codeine; vc1 23:00 PENICILLINS; vc1 23:00 Sulfa (Sulfonamide Antibiotics); vc1 - PMHx: 23:00 None; vc1 - PSHx: 23:00 bladder suspension; hysterectomy; vc1 - Immunization history:: Client reports receiving the 1st dose of the Covid vaccine. - Infectious Disease History:: Denies. - Social history:: Smoking status: Patient denies any tobacco usage or history of. ROS: 10/11 01:21 Constitutional: As per HPI kb Exam: 01:21 Constitutional: This is a well developed, well nourished patient who is awake, alert, kb and in no acute distress. Eyes: Pupils equal round and reactive to light, extra-ocular motions intact. Lids and lashes normal. Conjunctiva and sclera are non-icteric and not injected. Cornea within normal limits. Periorbital areas with no swelling, redness, or edema. ENT: Moist Mucous membranes Cardiovascular: Regular rate Respiratory: Respirations even and unlabored. No increased work of breathing. Talking in full sentences Skin: Warm, dry with normal turgor. Normal color. MS/ Extremity: Pulses equal, no cyanosis. Neurovascular intact. Full, normal range of motion. Neuro: Awake and alert, GCS 15, oriented to person, place, time, and situation. 01:21 Head/face: Noted is no obvious of injury or deformity except ecchymosis, that is mild, that is moderate, of the right cheek and left cheek, swelling, that is moderate, of the nose, 01:21 ENT: Mouth: Lips: lacerated, approximately 0.5 cm(s), inner upper lip, Vital Signs: 10/10 22:55 Weight 57.61 kg; Height 5 ft. 2 in. ; Pain 10/10; vc1 10/11 01:41 BP 141 / 73; Pulse 61; Resp 14; Pulse Ox 98% on R/A; kmf 02:24 BP 143 / 70; Pulse 66; Pulse Ox 100% ; oh1 10/10 22:55 Body Mass Index 23.23 (57.61 kg, 157.48 cm) vc1 10/10 22:55 Pain Scale: Adult vc1 Meredith Coma Score: 01:22 Eye Response: spontaneous(4). Motor Response: obeys commands(6). Verbal Response: kb oriented(5). Total: 15. MDM: 10/10 23:13 Medical Screening Exam initiated kb 10/11 01:22 Differential diagnosis: Contusion of nose, Intracranial bleed- subdural, fracture. Data kb reviewed: vital signs, nurses notes. 01:59 Counseling: I had a detailed discussion with the patient and/or guardian regarding the kb historical points, exam findings, and any diagnostic results supporting the discharge/admit diagnosis, radiology results, the need for outpatient follow up, a family practitioner, to return to the emergency department if symptoms worsen or persist or if there are any questions or concerns that arise at home. 10/10 23:37 Order name: CT Head C Spine kb 10/10 23:37 Order name: CT Facial Bones W/O Con 10/10 23:38 Order name: Ice pack; Complete Time: 00:02 kb Administered Medications: No medications were administered Disposition: 04:24 Co-signature as Attending Physician, Hugo Rothman MD I reviewed the patient's care rn provided by the Advanced Practice Provider and agree with the diagnosis and treatment plan. Disposition Summary: 10/11/24 02:00 Discharge Ordered Notes: Location: Home Condition: Stable kb Diagnosis - Contusion of nose kb - Unspecified injury of head, initial encounter kb Followup: kb - With: Emergency Department - When: As needed - Reason: Worsening of condition Followup: kb - With: Private Physician - When: 2 - 3 days - Reason: Recheck today's complaints, Continuance of care, Re-evaluation by your physician Discharge Instructions: - Discharge Summary Sheet kb - Head Injury, Adult, [id number] kb - Facial or Scalp Contusion, [id number] kb Forms: - Medication Reconciliation Form kb - Antibiotic Education kb - Prescription Opioid Use kb - Patient Portal Instructions kb - Leadership Thank You Letter kb Signatures: Dispatcher [employer] Margret Puente, SUPPLIER QUALITY MANAGER-C SUPPLIER QUALITY MANAGER-CkHugo Peguero MD MD rn Gris Lima RN RN vc1 Corrections: (The following items were deleted from the chart) 02:00 01:57 Transition of care: After a detail discussion of the patient's case, care is kb transferred to Hugo salazar
--- NOTE | 2024-10-11 02:01 | ER ---
Nurse's Notes [facility] Name: Glenna Perdue Age: 74 yrs Sex: Female : 1950 Arrival Date: 10/10/2024 Time: 22:34 Bed 9 Private MD: Diagnosis: Contusion of nose;Unspecified injury of head, initial encounter Presentation: 10/10 22:55 Chief complaint: Patient states: Ran into a door. Coronavirus screen: Client denies vc1 travel out of the [place] in the last 14 days. At this time, the client does not indicate any symptoms associated with coronavirus-19. 22:55 Method Of Arrival: Ambulatory vc1 22:55 Ebola Screen: Patient negative for fever greater than or equal to 101.5 degrees vc1 Fahrenheit, and additional compatible Ebola Virus Disease symptoms Patient denies exposure to infectious person. Patient denies travel to an Ebola-affected area in the 21 days before illness onset. No symptoms or risks identified at this time. Initial Sepsis Screen: Does the patient meet any 2 criteria? No. Patient's initial sepsis screen is negative. Does the patient have a suspected source of infection? No. Patient's initial sepsis screen is negative. Risk Assessment: Do you want to hurt yourself or someone else? Patient reports no desire to harm self or others. Onset of symptoms was October 10, 2024. 22:55 Acuity: KONRAD 3 vc1 Triage Assessment: 23:00 General: Appears in no apparent distress. uncomfortable, Behavior is calm, cooperative, vc1 appropriate for age. Pain: Complains of pain in nose Pain does not radiate. Pain currently is 10 out of 10 on a pain scale. EENT: bruising under eyes, swelling around nose. Neuro: Level of Consciousness is awake, alert, obeys commands, Oriented to person, place, time, situation, Appropriate for age. Cardiovascular: Capillary refill < 3 seconds Patient's skin is warm and dry. Respiratory: Airway is patent Respiratory effort is even, unlabored, Respiratory pattern is regular, symmetrical, Breath sounds are clear bilaterally. GI: No deficits noted. No signs and/or symptoms were reported involving the gastrointestinal system. : No deficits noted. No signs and/or symptoms were reported regarding the genitourinary system. Derm: Skin is intact, is healthy with good turgor, Skin is dry, Skin is normal, Skin temperature is warm. Musculoskeletal: Circulation, motion, and sensation intact. Range of motion: intact in all extremities. Historical: - Allergies: 23:00 Aspirin; vc1 23:00 Codeine; vc1 23:00 PENICILLINS; vc1 23:00 Sulfa (Sulfonamide Antibiotics); vc1 - PMHx: 23:00 None; vc1 - PSHx: 23:00 bladder suspension; hysterectomy; vc1 - Immunization history:: Client reports receiving the 1st dose of the Covid vaccine. - Infectious Disease History:: Denies. - Social history:: Smoking status: Patient denies any tobacco usage or history of. Screenin:00 [facility] ED Fall Risk Assessment (Adult) History of falling in the last 3 months, vc1 including since admission No falls in past 3 months (0 pts) Confusion or Disorientation No (0 pts) Intoxicated or Sedated No (0 pts) Impaired Gait No (0 pts) Mobility Assist Device Used No (0 pt) Altered Elimination No (0 pt) Score/Fall Risk Level 0 - 2 = Low Risk Oriented to surroundings, Maintained a safe environment, Educated pt \T\ family on fall prevention, incl call for assistance when getting out of bed. Abuse screen: Denies threats or abuse. Nutritional screening: No deficits noted. Tuberculosis screening: No symptoms or risk factors identified. Assessment: 10/11 01:44 Reassessment: No changes from previously documented assessment. Patient and/or family vc1 updated on plan of care and expected duration. Pain level reassessed. Patient is alert, oriented x 3, equal unlabored respirations, skin warm/dry/pink. Pain: Complains of pain in nose. Vital Signs: 10/10 22:55 Weight 57.61 kg; Height 5 ft. 2 in. ; Pain 10/10; vc1 10/11 01:41 BP 141 / 73; Pulse 61; Resp 14; Pulse Ox 98% on R/A; kmf 02:24 BP 143 / 70; Pulse 66; Pulse Ox 100% ; oh1 10/10 22:55 Body Mass Index 23.23 (57.61 kg, 157.48 cm) vc1 10/10 22:55 Pain Scale: Adult vc1 Bates Coma Score: 01:22 Eye Response: spontaneous(4). Motor Response: obeys commands(6). Verbal Response: martin oriented(5). Total: 15. ED Course: 10/10 22:37 Patient arrived in ED. im 23:00 Arm band placed on right wrist. vc1 23:00 Patient has correct armband on for positive identification. Bed in low position. Pulse vc1 ox on. NIBP on. 23:13 Margret Mcqueen FNP-C is PHCP. kb 23:13 Hugo Rothman MD is Attending Physician. kb 10/11 00:23 CT Head C Spine In Process Unspecified. EDMS 00:23 CT Facial Bones W/O Con In Process Unspecified. EDMS 01:41 Triage completed. vc1 02:21 No provider procedures requiring assistance completed. Patient did not have IV access vc1 during this emergency room visit. 02:29 Provided Education on: dont blow nose to hard, be gentle. vc1 Administered Medications: No medications were administered Medication: 01:44 VIS not applicable for this client. vc1 Outcome: 02:00 Discharge ordered by MD. kb 02:29 Discharged to home ambulatory, vc1 02:29 Condition: good 02:29 Discharge instructions given to patient, Instructed on discharge instructions, follow up and referral plans. Demonstrated understanding of instructions, follow-up care, 02:32 Patient left the ED. vc1 Signatures: Dispatcher [employer] EDPA Margret Mcqueen FNP-C FNP-Ckb Calcote, Vanessa, RN RN vc1 Lillian Bartlett Kelsey Maroul [facility] Maddie Zee oh1
--- NOTE | 2024-10-11 02:02 | RAD REPORT ---
EXAM: CT Head and Cervical Spine Without Intravenous Contrast CLINICAL HISTORY: The patient is 74 years old and is Female; TRAUMA TECHNIQUE: Axial computed tomography images of the head/brain and cervical spine without intravenou s contrast. Sagittal and coronal reformatted images were created and reviewed. This CT exam was performed using one or more of the following dose reduction techniques: automated exposure control, adjustment of the mA and/or kV according to patient size, and/or use of iterative reconstruction technique. COMPARISON: No relevant prior studies available. FINDINGS: Brain: Unremarkable. No hemorrhage. No significant white matter disease. No edema. Ventricles: Unremarkable. No ventriculomegaly. Skull: No acute fracture. Sinuses: Unremarkable as visualized. No acute sinusitis. Mastoid air cells: Unremarkable as visualized. No mastoid effusion. Vertebrae: Unremarkable. No acute fracture. Normal alignment. Discs/spinal canal/neural foramina: No acute findings. No spinal canal stenosis. Soft tissues: Unremarkable. * A single impression for all exams can be found at the end of this report EXAM: CT Maxillofacial Without Intravenous Contrast CLINICAL HISTORY: The patient is 74 years old and is Female; TRAUMA TECHNIQUE: Axial computed tomography images of the face without intravenous contrast. Sagittal an d coronal reformatted images were created and reviewed. This CT exam was performed using one or more of the following dose reduction techniques: automated exposure control, adjustment of the mA a nd/or kV according to patient size, and/or use of iterative reconstruction technique. COMPARISON: No relevant prior studies available. FINDINGS: Bones/joints: No acute fracture. Soft tissues: Unremarkable. Orbits: Unremarkable. Sinuses: Unremarkable. No air-fluid levels. * A single impression for all exams can be found at the end of this report IMPRESSION: CT Head and Cervical Spine Without Intravenous Contrast: No acute intracranial abnormality. No acute findings in the cervical spine. CT Maxillofacial Without Intravenous Contrast: No acute fracture. 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 Transcribed Date/Time: 10/11/2024 2:02 AM
--- NOTE | 2024-10-11 02:02 | RAD REPORT ---
EXAM: CT Head and Cervical Spine Without Intravenous Contrast CLINICAL HISTORY: The patient is 74 years old and is Female; TRAUMA TECHNIQUE: Axial computed tomography images of the head/brain and cervical spine without intravenou s contrast. Sagittal and coronal reformatted images were created and reviewed. This CT exam was performed using one or more of the following dose reduction techniques: automated exposure control, adjustment of the mA and/or kV according to patient size, and/or use of iterative reconstruction technique. COMPARISON: No relevant prior studies available. FINDINGS: Brain: Unremarkable. No hemorrhage. No significant white matter disease. No edema. Ventricles: Unremarkable. No ventriculomegaly. Skull: No acute fracture. Sinuses: Unremarkable as visualized. No acute sinusitis. Mastoid air cells: Unremarkable as visualized. No mastoid effusion. Vertebrae: Unremarkable. No acute fracture. Normal alignment. Discs/spinal canal/neural foramina: No acute findings. No spinal canal stenosis. Soft tissues: Unremarkable. * A single impression for all exams can be found at the end of this report EXAM: CT Maxillofacial Without Intravenous Contrast CLINICAL HISTORY: The patient is 74 years old and is Female; TRAUMA TECHNIQUE: Axial computed tomography images of the face without intravenous contrast. Sagittal an d coronal reformatted images were created and reviewed. This CT exam was performed using one or more of the following dose reduction techniques: automated exposure control, adjustment of the mA a nd/or kV according to patient size, and/or use of iterative reconstruction technique. COMPARISON: No relevant prior studies available. FINDINGS: Bones/joints: No acute fracture. Soft tissues: Unremarkable. Orbits: Unremarkable. Sinuses: Unremarkable. No air-fluid levels. * A single impression for all exams can be found at the end of this report IMPRESSION: CT Head and Cervical Spine Without Intravenous Contrast: No acute intracranial abnormality. No acute findings in the cervical spine. CT Maxillofacial Without Intravenous Contrast: No acute fracture. 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 Transcribed Date/Time: 10/11/2024 2:02 AM
[2024-10-11 03:00] VITALS: BP 143/70; O2SAT 100
== END 2024-10-11 02:32 | disposition home or self-care (01) ==
LOC: ER 22:34
DX: S09.90XA Unspecified injury of head, initial encounter (principal); S00.33XA Contusion of nose, initial encounter; W22.09XA Striking against other stationary object, initial encounter; Z88.0 Allergy status to penicillin; Z88.2 Allergy status to sulfonamides; Z88.5 Allergy status to narcotic agent; Z88.8 Allergy status to other drugs, medicaments and biological substances
CPT/HCPCS: 70450; 70486; 72125; 76377; 99283